=== PATIENT | male | born 1970 | race Caucasian/White ===

== ENCOUNTER → 2018-02-02 08:12 | Outpatient (CLI) | payer OTHER, SELFPAY ==
--- NOTE | 2018-02-02 08:14 | DI.CT.S_ITS ---
PROCEDURE: CT ABDOMEN PELVIS W CON INDICATIONS: 47 year-old male with constipation and rectal pain for 2 weeks. TECHNIQUE: After the administration of oral and intravenous contrast, 5 mm thick sections acquired from the diaphragms to the symphysis. 5 mm thick coronal and sagittal reformats were performed. For radiation dose reduction, the following was used: automated exposure control, adjustment of mA and/or kV according to patient size. COMPARISON: [facility], CT, ABDOMEN/PELVIS WITH CONTRAST, 09/12/2017, 8:55. [facility], CT, ABDOMEN/PELVIS WITH CONTRAST, 05/21/2016, 17:42. FINDINGS: Image quality: Excellent. ABDOMEN: Lung bases: Lung bases are clear, except for minimal right basilar linear scarring. Heart size is normal. Solid organs: Liver is normal in size, with scattered variably sized hepatic cysts as before. Gallbladder wall thickness is normal. Biliary system is non-dilated. Pancreas enhances normally. Spleen is normal in size and enhancement. No adrenal nodules. Kidneys are normal in size and enhancement, without hydronephrosis. Peritoneum and bowel: Stomach, small bowel are normal in caliber and wall thickness. As before, there is a very large amount of stool distending the distal colon and rectum. The appendix appears normal. No free fluid or air. Nodes and vessels: No retroperitoneal or mesenteric adenopathy. Aorta and inferior vena cava are normal in caliber. Miscellaneous: No ventral hernias. PELVIS: Genitourinary: Bladder is incompletely distended at the time of scan, and displaced to the right by stool-distended distal colon. Miscellaneous: No inguinal hernias or adenopathy. Bones: No suspicious bony lesions. No vertebral body compression fractures. Coronal images again demonstrate an asymmetrically shallow right acetabulum, consistent with congenital hip dysplasia. There is thoracolumbar spine disc degeneration. IMPRESSION: 1. Persistent or recurrent findings of severe fecal impaction and constipation, with a very large amount of stool distending the distal colon and rectum. No small bowel obstruction. 2. Background congenital right hip dysplasia as before. 3. Scattered hepatic cysts again noted. Dictated by: Robby Amado M.D. on 02/02/2018 at 10:41 Approved by: Robby Amado M.D. on 02/02/2018 at 10:53
== END ==
PROVIDERS: Family Provider Internal Medicine; PCP Internal Medicine; Visit Provider Internal Medicine Hematology & Oncology
DX: D61.818 Other pancytopenia (principal)
CPT/HCPCS: 74177; Q9967

== ENCOUNTER → 2018-04-06 08:21 | Outpatient (CLI) | payer OTHER, SELFPAY ==
[2018-04-06 08:42] LABS: Hematocrit 29.4 % (41-53); Hemoglobin 10.4 g/dL (13.5-17.5); Mean Corpuscular HGB Conc 35.3 % (30-36); Mean Corpuscular Hemoglobin 39.2 PG (26-34); Platelet Count 43 X10^3/uL (150-400); Red Blood Cell Count 2.64 X10^6/uL (4.5-5.9); Red Cell Distribution Width 19.5 % (11.6-14.8)
[2018-04-06 08:44] LABS: White Blood Cell Count 1.7 X10^3/uL (4.5-11.0)
[2018-04-06 08:45] LABS: Add Manual Diff / Slide Review YES
[2018-04-06 09:05] LABS: Anisocytosis 2+; Neutrophils Absolute Manual 765 /uL (3000-5900); Tear Drop Cells 1+; Total Cells Counted 100
== END ==
PROVIDERS: PCP Internal Medicine; Visit Provider Nurse Practitioner Gerontology
DX: D61.818 Other pancytopenia (principal)
CPT/HCPCS: 36415; 85025

== ENCOUNTER 2018-10-09 14:33 | Emergency (ER) | payer OTHER, SELFPAY ==
[2018-10-09 14:37] VITALS: BP 119/83; PULSE 109; RESP 20; TEMP 37.5; O2SAT 97
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
== END 2018-10-09 17:04 | disposition home or self-care (01) ==
PROVIDERS: Emergency Provider Emergency Medicine; Family Provider Internal Medicine; PCP Internal Medicine
DX: S93.402A Sprain of unspecified ligament of left ankle, initial encounter (principal); S70.02XA Contusion of left hip, initial encounter; W01.0XXA Fall on same level from slipping, tripping and stumbling without subsequent striking against object, initial encounter
CPT/HCPCS: 73610; 99282; 99283

== ENCOUNTER 2019-03-08 15:53 | Emergency (ER) | payer OTHER, SELFPAY ==
[2019-03-08] VITALS (15 sets, daily range): BP systolic 89–117; BP diastolic 52–76; PULSE 71–121; RESP 11–18; TEMP 36.8; O2SAT 92–99; BMI 28.4
[2019-03-08] MEDS: ONDANSETRON 4 MG/2 ML INJ IV (16:08)
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
[2019-03-08 16:36] LABS: Hematocrit 31.2 % (41-53); Hemoglobin 10.7 g/dL (13.5-17.5); INR 1.2 (0.9-1.3); Mean Corpuscular HGB Conc 34.3 % (30-36); Mean Corpuscular Hemoglobin 36.6 PG (26-34); Mean Corpuscular Volume 106.5 fL (80-100); Platelet Count 49 X10^3/uL (150-400); Prothrombin Time 14.3 SECONDS (10.1-12.7); Red Blood Cell Count 2.93 X10^6/uL (4.5-5.9); Red Cell Distribution Width 20.1 % (11.6-14.8); White Blood Cell Count 2.2 X10^3/uL (4.5-11.0)
[2019-03-08 16:41] LABS: Alanine Aminotransferase 126 IU/L (21-72); Albumin 3.5 g/dL (3.5-5.0); Albumin Globulin Ratio 1.8 (1.0-2.8); Alkaline Phosphatase 62 U/L (38-126); Aspartate Aminotransferase 98 IU/L (17-59); Bilirubin Total 1.5 mg/dL (0.2-1.3); Blood Urea Nitrogen 14 mg/dL (9-20); Calcium 8.1 mg/dL (8.4-10.2); Carbon Dioxide 28 mmol/L (22-32); Chloride 103 mmol/L (98-107); Estimated Glomerular Filt Rate > 60.0 mL/min (>60); Globulin 1.9 g/dL (1.7-4.1); Glucose 156 mg/dL (70-100); HEMOLYSIS < 15 (0-50); Potassium 3.4 mmol/L (3.4-5.1); Sodium 138 mmol/L (137-145); Total Protein 5.4 g/dL (6.3-8.2)
[2019-03-08 16:45] LABS: Add Manual Diff / Slide Review YES
[2019-03-08 17:43] LABS: Neutrophils Absolute Manual 638 /uL (3000-5900); Total Cells Counted 100
[2019-03-08 17:45] LABS: Anisocytosis 3+; Macrocytosis 2+; Poikilocytosis 2+
[2019-03-08 17:54] LABS: Creatine Kinase 873 U/L (55-170)
[2019-03-08 18:07] LABS: Troponin I < 0.012 ng/mL (0.01-0.034)
[2019-03-08] MEDS: SODIUM CHLORIDE 0.9% 1,000 ML 1000 ML IV ×2 (19:27→21:16)
== END 2019-03-08 22:17 | disposition short-term general hospital (02) ==
PROVIDERS: Emergency Provider Emergency Medicine; Family Provider Internal Medicine; PCP Internal Medicine
DX: S22.20XA Unspecified fracture of sternum, initial encounter for closed fracture (principal); R58 Hemorrhage, not elsewhere classified; M79.642 Pain in left hand; D61.818 Other pancytopenia; D70.4 Cyclic neutropenia; V43.52XA Car driver injured in collision with other type car in traffic accident, initial encounter
CPT/HCPCS: 29125; 36415; 71260; 72125; 73130; 74177; 80053; 82550; 82553; 84484; 85025; 85610; 93005; 96361; 96374; 99285; J2405; Q9967

== ENCOUNTER 2019-05-15 08:57 | Day surgery (SDC) | payer OTHER, SELFPAY ==
[2019-05-15 09:49] VITALS: BP 109/74; PULSE 111; RESP 16; TEMP 36.3; O2SAT 96; BMI 24.9
[2019-05-15] MEDS: PROPARACAINE 0.5% OPHTH SOL 2 DROPS EYE-OP (10:00)
[2019-05-15] MEDS: CATARACT EYE COMPOUND (10 DROPS/SYRINGE) 3 DROPS EYE-OP (10:02)
[2019-05-15 11:00] VITALS: BP 93/62; PULSE 95; RESP 12; TEMP 36.1; O2SAT 94
[2019-05-15] MEDS: SODIUM CHLORIDE 0.9% 1,000 ML 84 ML IV (11:00)
--- NOTE | 2019-05-15 11:16 | PM.PREOP ---
Pre-operative Note Interval Note History & Physical reviewed/Exam performed by Physician: No Changes to H&P: No
--- NOTE | 2019-05-15 11:16 | PM.OP.1 ---
Operative Date/Time/Diagnoses Pre-op diagnosis: Nuclear cataract right eye Procedure & Clinicians Procedure: Cataract Surgery Same procedure as scheduled: Yes Surgeon: Nico Rowe Anesthesia Type: MAC +/- and Sedation Operative Notes Procedure in detail: Patient brought to the operating suite. Tetracaine drops placed in the right eye. Patient was prepped and draped in sterile manner. Wire lid speculum was placed in the eye. Betadine drops were placed on the eye. This was irrigated. Lidocaine jelly was placed on the eye. A paracentesis port was created with a side-port blade. 0.1 mL 1% preservative free lidocaine was injected into the anterior chamber. The anterior chamber was deepened with viscoelastic. 2.6 mm keratome was used to create a temporal clear corneal incision. Cystotome and Utrata forceps were used to create continuous tear capsulorrhexis. Balanced salt solution was used to hydro dissect the nucleus. The [place] was used to crack the nucleous. The phacoemulsification handpiece was inserted and the nucleus was removed using the stop and chop technique. The irrigation aspiration handpiece was inserted and the remaining cortex was removed. Anterior chamber was deepened with viscoelastic. An Solano ZCB00 intraocular lens with a power of 11.0 was injected into the capsular bag. Irrigation aspiration handpiece was inserted and the remaining viscoelastic was removed. Incision was hydrated with balanced salt solution and found to be leak free with pressure with Weck-Pricilla sponges. 0.1 mL Vigamox injected anterior chamber. 0.3 mL Kenalog 10 mg was injected subconjunctivally. Lid speculum was removed. The patient left the operating room in excellent condition. Complications: none Post-operative Condition: stable Disposition: same day surgery
[2019-05-15 11:30] VITALS: BP 104/67; PULSE 99; RESP 16; TEMP 36.7; O2SAT 95
[2019-05-15] MEDS: TETRACAINE 0.5% OPHTH DROPS 4 ML 2 DROPS EYE-OP (11:45)
[2019-05-15] MEDS: PHENYLEPHRINE/LIDOCAINE VIAL (OR) 0.2 ML EYE-OP (11:45)
[2019-05-15] MEDS: LIDOCAINE JELLY 2% 5 ML 1 APPLIC TOP (11:45)
[2019-05-15] MEDS: MOXIFLOXACIN INJ 5 MG/ML VIAL EYE-OP (11:45)
[2019-05-15] MEDS: CHONDROIDTIN/SOD HYALURONATE 1.05 ML SYRINGE INTRAOCULA (11:45)
[2019-05-15] MEDS: TRIAMCINOLONE 50 MG/5 ML VIAL INJ (11:46)
[2019-05-15] MEDS: BALANCED SALT IRRIG SOLN NO.2 500 ML, EPINEPHrine 1 MG IRR (11:46)
[2019-05-15 11:55] VITALS: BP 111/70; PULSE 109; RESP 14; TEMP 36.8; O2SAT 98
[2019-05-15 12:09] VITALS: BP 105/65; PULSE 112; RESP 14; TEMP 37.1; O2SAT 100
--- NOTE | 2019-05-15 12:13 | SUR.PHASEII ---
Denies feeling light headed, pain, states that he just feels like he'd like to go home and sleep. Has a small amount of red teary drainage from right eye, has not increased since return from OR. Tolerating coffee well. Denies having any questions. Facial color pink.
--- NOTE | 2019-05-15 16:26 | SUR.PREOP ---
Late entry: 1100 pt used call light because he said he felt dizzy, pt was pale and diaphoretic. Pt placed on stretcher and IV flds started, CBG 112, cool cloth placed to forehead. symptoms cleared after several minutes and color returned to face and pt no longer dizzy. Dr vazquez aware of pt's condition.
== END 2019-05-15 12:20 | disposition home or self-care (01) ==
LOC: OR 08:58
PROVIDERS: Family Provider Internal Medicine; PCP Internal Medicine; Visit Provider Ophthalmology
PROC: (CPT 66984; principal; 2019-05-15 10:45)
DX: H25.11 Age-related nuclear cataract, right eye (principal)
CPT/HCPCS: 66984; J0171; J2250; J3301

== ENCOUNTER 2019-05-29 11:03 | Day surgery (SDC) | payer OTHER, SELFPAY ==
[2019-05-29] MEDS: PROPARACAINE 0.5% OPHTH SOL 2 DROPS EYE-OP (11:53)
[2019-05-29] MEDS: CATARACT EYE COMPOUND (10 DROPS/SYRINGE) 3 DROPS EYE-OP (11:56)
[2019-05-29 11:57] VITALS: BMI 25.0
[2019-05-29 11:59] VITALS: BP 113/74; PULSE 82; RESP 16; TEMP 37.1; O2SAT 99
--- NOTE | 2019-05-29 12:09 | PM.PREOP ---
Pre-operative Note Interval Note History & Physical reviewed/Exam performed by Physician: No Changes to H&P: No
--- NOTE | 2019-05-29 12:09 | PM.OP.1 ---
Operative Date/Time/Diagnoses Pre-op diagnosis: Nuclear Cataract Left eye Post-op diagnosis: same Procedure & Clinicians Surgeon: Nico Rowe Anesthesia Type: MAC +/- and Sedation Operative Notes Procedure in detail: Patient brought to the operating suite. Tetracaine drops placed in the left eye. Patient was prepped and draped in sterile manner. Wire lid speculum was placed in the eye. Betadine drops were placed on the eye. This was irrigated. Lidocaine jelly was placed on the eye. A paracentesis port was created with a side-port blade. 0.1 mL 1% preservative free lidocaine was injected into the anterior chamber. The anterior chamber was deepened with viscoelastic. 2.6 mm keratome was used to create a temporal clear corneal incision. Cystotome and Utrata forceps were used to create continuous tear capsulorrhexis. Balanced salt solution was used to hydro dissect the nucleus. The phacoemulsification handpiece was inserted and the nucleus was removed using the stop and chop technique. The irrigation aspiration handpiece was inserted and the remaining cortex was removed. Anterior chamber was deepened with viscoelastic. An Solano ZCB00 intraocular lens with a power of 12.0 was injected into the capsular bag. Irrigation aspiration handpiece was inserted and the remaining viscoelastic was removed. Incision was hydrated with balanced salt solution and found to be leak free with pressure with Weck-Pricilla sponges. 0.1 mL Vigamox injected anterior chamber. 0.3 mL Kenalog 10 mg was injected subconjunctivally. Lid speculum was removed. The patient left the operating room in excellent condition. Complications: none Post-operative Condition: stable Disposition: same day surgery
--- NOTE | 2019-05-29 12:27 | SUR.OPER ---
Supine on eye stretcher, head on extension cradle secured with tape. Arms tucked at sides with blanket. Pillow under knees.
[2019-05-29] MEDS: CHONDROIDTIN/SOD HYALURONATE 1.05 ML SYRINGE INTRAOCULA (12:31)
[2019-05-29] MEDS: PHENYLEPHRINE/LIDOCAINE VIAL (OR) 0.2 ML EYE-OP (12:31)
[2019-05-29] MEDS: MOXIFLOXACIN INJ 5 MG/ML VIAL EYE-OP (12:31)
[2019-05-29] MEDS: LIDOCAINE JELLY 2% 5 ML 1 APPLIC TOP (12:31)
[2019-05-29] MEDS: TETRACAINE 0.5% OPHTH DROPS 4 ML 2 DROPS EYE-OP (12:31)
[2019-05-29 12:37] VITALS: BP 112/72; PULSE 731; RESP 16; TEMP 36.6; O2SAT 98
[2019-05-29] MEDS: TRIAMCINOLONE 50 MG/5 ML VIAL INJ (12:41)
[2019-05-29] MEDS: BALANCED SALT IRRIG SOLN NO.2 500 ML, EPINEPHrine 1 MG IRR (12:42)
[2019-05-29 13:37] VITALS: BP 136/80; PULSE 67; RESP 16; TEMP 36.1; O2SAT 98
== END 2019-05-29 14:03 ==
LOC: OR 11:04
PROVIDERS: Family Provider Internal Medicine; PCP Internal Medicine; Visit Provider Ophthalmology
PROC: (CPT 66984; principal; 2019-05-29 13:15)
DX: H25.12 Age-related nuclear cataract, left eye (principal); D64.9 Anemia, unspecified
CPT/HCPCS: 66984; J0171; J2250; J3010; J3301

== ENCOUNTER → 2019-06-11 12:47 | Outpatient (CLI) | payer OTHER, SELFPAY ==
[2019-06-11 13:00] LABS: Hematocrit 38.1 % (41-53); Hemoglobin 13.2 g/dL (13.5-17.5); Mean Corpuscular HGB Conc 34.7 % (30-36); Mean Corpuscular Hemoglobin 36.3 PG (26-34); Mean Corpuscular Volume 104.5 fL (80-100); Platelet Count 52 X10^3/uL (150-400); Red Blood Cell Count 3.64 X10^6/uL (4.5-5.9); Red Cell Distribution Width 16.6 % (11.6-14.8)
[2019-06-11 13:02] LABS: Add Manual Diff / Slide Review YES; White Blood Cell Count 1.9 X10^3/uL (4.5-11.0)
[2019-06-11 13:45] LABS: Anisocytosis 2+; Neutrophils Absolute Manual 722 /uL (3000-5900); Poikilocytosis 1+; Tear Drop Cells 1+; Total Cells Counted 100
== END ==
PROVIDERS: PCP Internal Medicine
DX: D61.818 Other pancytopenia (principal)
CPT/HCPCS: 36415; 85025

== ENCOUNTER → 2019-07-09 13:20 | Outpatient (CLI) | payer OTHER, SELFPAY ==
[2019-07-09 13:42] LABS: Hematocrit 35.7 % (41-53); Hemoglobin 12.5 g/dL (13.5-17.5); Mean Corpuscular HGB Conc 35.1 % (30-36); Mean Corpuscular Hemoglobin 36.3 PG (26-34); Mean Corpuscular Volume 103.2 fL (80-100); Platelet Count 48 X10^3/uL (150-400); Red Blood Cell Count 3.46 X10^6/uL (4.5-5.9); Red Cell Distribution Width 17.1 % (11.6-14.8)
[2019-07-09 13:44] LABS: Add Manual Diff / Slide Review YES
[2019-07-09 13:45] LABS: White Blood Cell Count 1.7 X10^3/uL (4.5-11.0)
[2019-07-09 14:22] LABS: Neutrophils Absolute Manual 408 /uL (3000-5900); Total Cells Counted 25
[2019-07-09 14:24] LABS: Anisocytosis 2+; Macrocytosis 2+; Microcytosis 1+; Poikilocytosis 2+
== END ==
PROVIDERS: PCP Internal Medicine
DX: D61.818 Other pancytopenia (principal)
CPT/HCPCS: 36415; 85025

== ENCOUNTER → 2019-07-23 13:20 | Outpatient (CLI) | payer OTHER, SELFPAY ==
[2019-07-23 13:46] LABS: Hematocrit 38.1 % (41-53); Hemoglobin 13.4 g/dL (13.5-17.5); Mean Corpuscular HGB Conc 35.2 % (30-36); Mean Corpuscular Hemoglobin 36.5 PG (26-34); Mean Corpuscular Volume 103.7 fL (80-100); Platelet Count 46 X10^3/uL (150-400); Red Blood Cell Count 3.67 X10^6/uL (4.5-5.9)
[2019-07-23 13:48] LABS: Add Manual Diff / Slide Review YES
[2019-07-23 13:50] LABS: White Blood Cell Count 1.9 X10^3/uL (4.5-11.0)
[2019-07-23 14:22] LABS: Macrocytosis 1+; Neutrophils Absolute Manual 551 /uL (3000-5900); Platelet Estimate Decreased on smear; Total Cells Counted 100
[2019-07-23 14:23] LABS: Tear Drop Cells 1+
[2019-07-23 15:14] LABS: Smudge Cells 1+
== END ==
PROVIDERS: PCP Internal Medicine
DX: D61.818 Other pancytopenia (principal)
CPT/HCPCS: 36415; 85025

== ENCOUNTER → 2019-08-13 13:28 | Outpatient (CLI) | payer OTHER, SELFPAY ==
[2019-08-13 14:46] LABS: Add Manual Diff / Slide Review NO; Basophils Absolute Auto 0 /uL (0-100); Basophils Percent Auto 0.3 % (0-2); Eosinophils Absolute Auto 0 /uL (0-450); Eosinophils Percent Auto 0.3 % (2-4); Hematocrit 39.2 % (41-53); Hemoglobin 13.7 g/dL (13.5-17.5); Lymphocytes Absolute Auto 1100 /uL (1100-4500); Lymphocytes Percent Auto 46.2 % (25-40); Mean Corpuscular HGB Conc 34.9 % (30-36); Mean Corpuscular Hemoglobin 36.1 PG (26-34); Mean Corpuscular Volume 103.5 fL (80-100); Monocytes Absolute Auto 100 /uL (0-900); Monocytes Percent Auto 5.4 % (3-14); Neutrophils Absolute Auto 1100 /uL (1500-7000); Neutrophils Percent Auto 47.8 % (50-75); Platelet Count 54 X10^3/uL (150-400); Red Blood Cell Count 3.79 X10^6/uL (4.5-5.9); Red Cell Distribution Width 17.7 % (11.6-14.8); White Blood Cell Count 2.4 X10^3/uL (4.5-11.0)
== END ==
PROVIDERS: PCP Internal Medicine
DX: D61.818 Other pancytopenia (principal)
CPT/HCPCS: 36415; 85025

== ENCOUNTER → 2019-09-10 13:28 | Outpatient (CLI) | payer OTHER, SELFPAY ==
[2019-09-10 15:11] LABS: Hemoglobin 13.9 g/dL (13.5-17.5); Mean Corpuscular HGB Conc 34.9 % (30-36); Mean Corpuscular Hemoglobin 35.6 PG (26-34); Platelet Count 46 X10^3/uL (150-400); Red Blood Cell Count 3.92 X10^6/uL (4.5-5.9); Red Cell Distribution Width 16.5 % (11.6-14.8)
[2019-09-10 15:14] LABS: Add Manual Diff / Slide Review YES
[2019-09-10 15:40] LABS: Neutrophils Absolute Manual 820 /uL (3000-5900); Total Cells Counted 100
[2019-09-10 15:41] LABS: Macrocytosis 1+
== END ==
PROVIDERS: PCP Internal Medicine
DX: D61.818 Other pancytopenia (principal)
CPT/HCPCS: 36415; 85025

== ENCOUNTER 2019-09-17 14:29 | Inpatient (IN) | payer OTHER, SELFPAY ==
[2019-09-17] VITALS (8 sets, daily range): BP systolic 106–143; BP diastolic 56–84; PULSE 101–134; RESP 17–25; TEMP 37.8–38.9; O2SAT 94–99; BMI 25.8
--- NOTE | 2019-09-17 14:45 | ED_ITS ---
HPI - Fever General Chief Complaint: Fever Stated Complaint: IV FLUIDS Time Seen by Provider: 09/17/19 14:33 Source: patient and old records reviewed Mode of arrival: Ambulatory Limitations: no limitations History of Present Illness HPI Narrative: This is a 48-year-old male comes emergency complaint of fevers. Patient has had multiple fevers up to 103 F orally at home documented. 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 He takes prednisone daily as well as Neupogen injections at least once weekly. He states that he has been having chills and fevers. He has had some dysuria, sense of hesitancy with some dribbling but at other times able to urinate but does not feel like he is completely emptying his bladder. He denies any new abdominal or flank pain. He has chronic constipation he states it's been about a week which is normal for him he denies any chest pain or shortness of breath. He denies any cough. Denies any nasal congestion, upper respiratory symptoms. He states he has had pilonidal cysts that have been treated as well as colonoscopy for disimpaction or constipation in the past. He denies other surgeries. Related Data Home Medications Medication Instructions Recorded Confirmed polyethylene glycol 3350 [Miralax] 17 gm PO DAILY #0 07/16/16 09/17/19 Neupogen 480 mcg IJ QWEEK #0 09/23/17 09/17/19 Vitamin B-12 500 mcg PO DAILY #0 09/23/17 09/17/19 pyridoxine (vitamin B6) [Vitamin 250 mg PO DAILY 01/26/18 09/17/19 B-6] pediatric multivitamin 1 tab PO DAILY 09/17/19 09/17/19 [Flintstones Multivitamin] prednisone 20 mg PO SUMOTUWEFR 09/17/19 09/17/19 Previous Rx's Medication Instructions Recorded lactulose 20 g PO TID PRN #240 ml 04/24/18 Allergies Allergy/AdvReac Type Severity Reaction Status Date / Time No Known Drug Allergies Allergy Verified 05/29/19 11:52 Review of Systems Review of Systems ROS Unobtainable: All systems reviewed & are unremarkable except as noted in HPI and below Patient History Medical History Bone marrow failure (Acute) Constipation (Acute) Fecal impaction (Acute) Pancytopenia (Acute) Schwachman-Snehal syndrome (Acute) Social History household members: none Smoking Status: Never smoker Smoking Status: Never smoker alcohol intake frequency: a few times a week Substance Use Type: does not use Exam Narrative Exam Narrative: GEN: well nourished, well appearing male, alert and oriented x 3, patient appears to be in mild distress. HEENT: Atraumatic, pupils are equal round reactive to light, extraocular movements are intact, nares are clear, moist mucous membranes. HEART: Regular rate and rhythm without murmur, clicks, rubs. Pulses are equal in upper and lower extremities LUNGS:Lungs clear to auscultation, no wheezes, rales, crackles, chest moves symmetrically, no tachypnea or accessory muscle use. No cough while in the room. ABD:bowel sounds normal, soft, nondistended, non-tender, no guarding, rebound, rigidity, no masses noted, no hepatosplenomegaly :No CVA tenderness. MSCL: Non-tender, no muscle atrophy, muscles strength 5/5 upper and lower extremities, full range of motion, normal gait NEURO:CN 2-12 intact, sensation normal SKIN: pale, no rashes, petechiae or ecchymosis noted. Initial Vital Signs Initial Vital Signs: Vital Signs Temperature 102.1 F H 09/17/19 14:35 Pulse Rate 134 H 09/17/19 14:35 Respiratory Rate 18 09/17/19 14:35 Blood Pressure 139/84 09/17/19 14:35 Pulse Oximetry 98 09/17/19 14:35 Scores qSOFA Altered Mental Status (GCS <15): No Respiratory rate greater than/equal to 22: No Systolic blood pressure less than or equal to 100: No qSOFA Total: 0 0-1 Not High Risk 1-3 High risk Course Orders Ordered: ED Orders 09/17/19 14:54 XR acute abdomen series Stat 09/17/19 15:20 Comprehensive Metabolic Panel Stat Creatine Kinase Stat Lactate (Lactic Acid) Stat Procalcitonin Stat 01/20/20 15:31 Blood Culture Stat 09/17/19 17:33 CT abdomen pelvis w con Stat Discontinued Medications Acetaminophen (Tylenol) 650 mg PO NOW ONE Stop: 09/17/19 14:56 Last Admin: 09/17/19 15:22 Dose: 650 mg Documented by: DAVID Sodium Chloride (Normal Saline 0.9%) 2,112 mls @ 704 mls/hr 30 ml/kg infuse over 3 hr (2112 ml) IV NOW ONE Stop: 09/17/19 17:44 Last Admin: 09/17/19 15:08 Dose: 704 mls/hr Documented by: ACE Piperacillin/Tazobactam/Dextrose (Zosyn) 4.5 gm in 100 mls @ 200 mls/hr IV NOW ONE Stop: 09/17/19 15:14 Last Infusion: 09/17/19 15:50 Dose: 0 mls/hr Documented by: Admin: 09/17/19 15:17 Dose: 200 mls/hr Documented by: DAVID Vital Signs Vital signs: Vital Signs - 8 hr 09/17/19 14:35 09/17/19 15:50 09/17/19 16:00 Temperature 102.1 F H Pulse Rate 134 H 113 H 110 H Respiratory Rate 18 25 H 18 Blood Pressure 139/84 Blood Pressure [Right Arm] 106/56 L 119/63 Pulse Oximetry 98 97 99 09/17/19 17:10 Temperature 100.8 F H Pulse Rate 108 H Respiratory Rate 17 Blood Pressure Blood Pressure [Right Arm] 112/61 Pulse Oximetry 99 MDM - Fever Lab Data Attestation: I reviewed the patient's lab results. Result diagrams: 09/17/19 15:20 Labs: Lab Results 09/17/19 09/17/19 09/17/19 Range/Units 15:20 15:20 15:20 Sodium 135 L (137-145) mmol/L Potassium 3.9 (3.4-5.1) mmol/L Chloride 103 (98-107) mmol/L Carbon Dioxide 28 (22-32) mmol/L BUN 17 (9-20) mg/dL Creatinine 0.50 L (0.66-1.25) mg/dL Estimated GFR > 60.0 (>60) mL/min BUN/Creatinine Ratio 34.0 H (6-22) Glucose 98 (70-100) mg/dL Lactate 1.5 (0.7-2.1) mmol/L Calcium 8.3 L (8.4-10.2) mg/dL Total Bilirubin 1.5 H (0.2-1.3) mg/dL AST 64 H (17-59) IU/L ALT 75 H (<50) IU/L Alkaline Phosphatase 67 (38-126) U/L Total Creatine Kinase (55-170) U/L Total Protein 6.0 L (6.3-8.2) g/dL Albumin 3.5 (3.5-5.0) g/dL Globulin 2.5 (1.7-4.1) g/dL Albumin/Globulin Ratio 1.4 (1.0-2.8) Procalcitonin 0.44 (<0.5) ng/mL 09/17/19 Range/Units 15:20 Sodium (137-145) mmol/L Potassium (3.4-5.1) mmol/L Chloride (98-107) mmol/L Carbon Dioxide (22-32) mmol/L BUN (9-20) mg/dL Creatinine (0.66-1.25) mg/dL Estimated GFR (>60) mL/min BUN/Creatinine Ratio (6-22) Glucose (70-100) mg/dL Lactate (0.7-2.1) mmol/L Calcium (8.4-10.2) mg/dL Total Bilirubin (0.2-1.3) mg/dL AST (17-59) IU/L ALT (<50) IU/L Alkaline Phosphatase (38-126) U/L Total Creatine Kinase 411 H (55-170) U/L Total Protein (6.3-8.2) g/dL Albumin (3.5-5.0) g/dL Globulin (1.7-4.1) g/dL Albumin/Globulin Ratio (1.0-2.8) Procalcitonin (<0.5) ng/mL Imaging Data Abdominal x-ray: Radiologist's Impression: [address] [address] XRay Report Signed Patient: Kermit Raza III WMR#: [id number] : 1970Acct:[id number] Age/Sex: 48 / MDate of Service: 09/17/19 Loc: ED Accession Number: [id number] Procedure: XR acute abdomen series Ordering Provider: Silvia Andrade D.O. PROCEDURE: XR ACUTE ABDOMEN SERIES INDICATIONS: neutropenic fever TECHNIQUE: One view chest and two views of the abdomen were acquired. COMPARISON: [facility], CR, ABDOMEN ACUTE SERIES, 10/27/2016, 10:10. FINDINGS: Surgical changes and devices: None. Chest: Lungs are clear. Heart size is normal. No pleural effusions. No pneumoperitoneum. Abdomen: Bowel gas pattern is abnormal with prominent sigmoid and rectal obstipation. Stool within the rectum area measures up to 10.7 cm in transverse dimension.. No suspicious calcifications. Visualized solid organ contours appear normal. Bones: No suspicious bony lesions. IMPRESSION: Prominent colonic obstipation as discussed above, stool measuring up to 10.7 cm in diameter appears present superimposed on the midline low pelvis. The a similar pattern but slightly less prominent than was seen on similar plain film imaging of . Dictated by: Germain Rene M.D. on 09/17/2019 at 16:14 Approved by: Germain Rene M.D. on 09/17/2019 at 16:16 CT scan - abdomen/pelvis: Radiologist's Impression: [place] [id number] CT Scan Report Signed Patient: Kermit Raza III WMR#: [id number] : 1970Acct:[id number] Age/Sex: 48 / MDate of Service: 09/17/19 Loc: NI46O-2 Accession Number: [id number] Procedure: CT abdomen pelvis w con Ordering Provider: Silvia Andrade D.O. PROCEDURE: CT ABDOMEN PELVIS W CON INDICATIONS: constipation, uti, pyelo vs. other TECHNIQUE: After the administration of intravenous contrast, 5 mm thick sections acquired from the diaphragm to the symphysis. 5 mm coronal and sagittal reformats were acquired. For radiation dose reduction, the following was used: automated exposure control, adjustment of mA and/or kV according to patient size. COMPARISON: [facility], CT, CT CHEST ABD PEL W CON, 03/08/2019, 16:29. [facility], CT, CT ABDOMEN PELVIS W CON, 02/02/2018, 9:38. [facility], CT, ABDOMEN/PELVIS WITH CONTRAST, 09/12/2017, 8:55. FINDINGS: Image quality: Excellent. ABDOMEN: Lung bases: Mild bibasilar atelectasis greater on the left. Heart size is normal. Solid organs: Liver is normal in size and enhancement. Numerous hepatic hypodensities are again noted and likely representing cyst versus hemangiomas. Gallbladder is unremarkable. Biliary system is non dilated. Redemonstration of moderate fatty replacement of the pancreas. Pancreas enhances normally. Mild splenomegaly is again noted. Normal enhancement of the spleen. No adrenal nodules. Kidneys demonstrate normal size and enhancement, without hydronephrosis. There is minimal, subtle ureteral enhancement which may be related to phase of contrast versus minimal inflammation. Peritoneum and bowel: There is severe amount of fecal material noted in the mid sigmoid colon extending to the rectum. Surrounding bowel wall appears normal without significant inflammatory stranding. This displaces the urinary bladder to the right. Bowel loops demonstrate normal wall thickness and caliber. No free fluid or air. Nodes and vessels: No retroperitoneal or mesenteric adenopathy by size criteria. Aorta and inferior vena cava are normal in size. Miscellaneous: No ventral hernias. PELVIS: Genitourinary: Urinary bladder is decompressed. Minimal wall thickening likely related to incomplete distention. No perivesicular inflammatory stranding. Miscellaneous: No pelvic adenopathy. Small fat containing bilateral inguinal hernias without acute inflammation. Bones: No suspicious bony lesions. No acute vertebral body compression fractu res. Multilevel spondylitic changes throughout the imaged spine. IMPRESSION: 1. Extensive/severe amount of fecal material noted in the mid sigmoid colon extending to the rectum compatible with constipation/impaction. No evidence for acute inflammatory changes or bowel obstruction. 2. Subtle enhancement of the bilateral ureters which may be related to phase of contrast enhancement versus minimal inflammation in the reported history of possible urinary tract infection. Additionally, mild circumferential thickening of the urinary bladder which may be due to incomplete distention. Cystitis cannot be excluded given reported history. Recommend correlation with urinalysis. 3. Fat-containing bilaterally normal hernias without acute inflammation. 4. Other chronic findings as above. Dictated by: Sha Venegas M.D. on 09/17/2019 at 18:15 Approved by: Sha Venegas M.D. on 09/17/2019 at 18:26 [facility] Narrative Medical decision making narrative: Spoke with Dr. Cates, he saw patient earlier today. They did a CBC and UA which was sent and shows blood as well as wbcs and bacteria. Lab was unable to run secondary discoloration. Patient states he is not taking azo or any medications that should be causing his symptoms. May be hematuria. CPK was added. Patient has a manual neutrophils of 264, hgb is 12.8 with platelets of 39. Sodium is 135 with otherwise normal electrolytes and normal renal function. Patient's total bilirubin is 1.5, with AST is 64 and ALT of 75. Alk-phos is 67. Patient's procalcitonin was 0.44. Patient had a temperature of 102.1? F in ER. Patient given tylenol. IV fluids for sepsis at 30cc/kg bolus. Zosyn 4.5grams given. Spoke with Dr. Sheppard, requests CT abd/pelvis but accepts for inpatient with tele. CT results show extensive stool mid sigmoid colon, no evidence of inflammation or bowel obstruction. subtle enhancement of bilateral ureters, cystitis cannot be excluded. fat-containing b/l normal hernias without acute inflammation. Discharge Plan Departure Patient Disposition: Admitted As Inpatient Clinical Impression: Neutropenic fever Admit Date/Time: 09/17/19 17:41 Admit Provider: Eleanor Sheppard
--- NOTE | 2019-09-17 14:54 | DI.RAD.S_ITS ---
PROCEDURE: XR ACUTE ABDOMEN SERIES INDICATIONS: neutropenic fever TECHNIQUE: One view chest and two views of the abdomen were acquired. COMPARISON: [facility], , ABDOMEN ACUTE SERIES, 10/27/2016, 10:10. FINDINGS: Surgical changes and devices: None. Chest: Lungs are clear. Heart size is normal. No pleural effusions. No pneumoperitoneum. Abdomen: Bowel gas pattern is abnormal with prominent sigmoid and rectal obstipation. Stool within the rectum area measures up to 10.7 cm in transverse dimension.. No suspicious calcifications. Visualized solid organ contours appear normal. Bones: No suspicious bony lesions. IMPRESSION: Prominent colonic obstipation as discussed above, stool measuring up to 10.7 cm in diameter appears present superimposed on the midline low pelvis. The a similar pattern but slightly less prominent than was seen on similar plain film imaging of . Dictated by: Germain Rene M.D. on 09/17/2019 at 16:14 Approved by: Germain Rene M.D. on 09/17/2019 at 16:16
[2019-09-17] MEDS: SODIUM CHLORIDE 0.9% 704 ML IV (15:08)
[2019-09-17] MEDS: PIPERACILLIN-TAZO 4.5 GM/100 ML FROZ.PIGGY IV (15:17)
[2019-09-17] MEDS: ACETAMINOPHEN 325 MG TABLET 650 MG PO (15:22)
[2019-09-17 15:50] LABS: Lactate (Lactic Acid) 1.5 mmol/L (0.7-2.1)
[2019-09-17 15:51] LABS: Alanine Aminotransferase 75 IU/L (<50); Albumin 3.5 g/dL (3.5-5.0); Albumin Globulin Ratio 1.4 (1.0-2.8); Alkaline Phosphatase 67 U/L (38-126); Aspartate Aminotransferase 64 IU/L (17-59); Bilirubin Total 1.5 mg/dL (0.2-1.3); Blood Urea Nitrogen 17 mg/dL (9-20); Calcium 8.3 mg/dL (8.4-10.2); Carbon Dioxide 28 mmol/L (22-32); Chloride 103 mmol/L (98-107); Estimated Glomerular Filt Rate > 60.0 mL/min (>60); Globulin 2.5 g/dL (1.7-4.1); Glucose 98 mg/dL (70-100); HEMOLYSIS < 15 (0-50); Potassium 3.9 mmol/L (3.4-5.1); Sodium 135 mmol/L (137-145)
[2019-09-17 16:13] LABS: Procalcitonin 0.44 ng/mL (<0.5)
[2019-09-17 17:22] LABS: Creatine Kinase 411 U/L (55-170)
--- NOTE | 2019-09-17 17:33 | DI.CT.S_ITS ---
PROCEDURE: CT ABDOMEN PELVIS W CON INDICATIONS: constipation, uti, pyelo vs. other TECHNIQUE: After the administration of intravenous contrast, 5 mm thick sections acquired from the diaphragm to the symphysis. 5 mm coronal and sagittal reformats were acquired. For radiation dose reduction, the following was used: automated exposure control, adjustment of mA and/or kV according to patient size. COMPARISON: [facility], CT, CT CHEST ABD PEL W CON, 03/08/2019, 16:29. [facility], CT, CT ABDOMEN PELVIS W CON, 02/02/2018, 9:38. [facility], CT, ABDOMEN/PELVIS WITH CONTRAST, 09/12/2017, 8:55. FINDINGS: Image quality: Excellent. ABDOMEN: Lung bases: Mild bibasilar atelectasis greater on the left. Heart size is normal. Solid organs: Liver is normal in size and enhancement. Numerous hepatic hypodensities are again noted and likely representing cyst versus hemangiomas. Gallbladder is unremarkable. Biliary system is non dilated. Redemonstration of moderate fatty replacement of the pancreas. Pancreas enhances normally. Mild splenomegaly is again noted. Normal enhancement of the spleen. No adrenal nodules. Kidneys demonstrate normal size and enhancement, without hydronephrosis. There is minimal, subtle ureteral enhancement which may be related to phase of contrast versus minimal inflammation. Peritoneum and bowel: There is severe amount of fecal material noted in the mid sigmoid colon extending to the rectum. Surrounding bowel wall appears normal without significant inflammatory stranding. This displaces the urinary bladder to the right. Bowel loops demonstrate normal wall thickness and caliber. No free fluid or air. Nodes and vessels: No retroperitoneal or mesenteric adenopathy by size criteria. Aorta and inferior vena cava are normal in size. Miscellaneous: No ventral hernias. PELVIS: Genitourinary: Urinary bladder is decompressed. Minimal wall thickening likely related to incomplete distention. No perivesicular inflammatory stranding. Miscellaneous: No pelvic adenopathy. Small fat containing bilateral inguinal hernias without acute inflammation. Bones: No suspicious bony lesions. No acute vertebral body compression fractures. Multilevel spondylitic changes throughout the imaged spine. IMPRESSION: 1. Extensive/severe amount of fecal material noted in the mid sigmoid colon extending to the rectum compatible with constipation/impaction. No evidence for acute inflammatory changes or bowel obstruction. 2. Subtle enhancement of the bilateral ureters which may be related to phase of contrast enhancement versus minimal inflammation in the reported history of possible urinary tract infection. Additionally, mild circumferential thickening of the urinary bladder which may be due to incomplete distention. Cystitis cannot be excluded given reported history. Recommend correlation with urinalysis. 3. Fat-containing bilaterally normal hernias without acute inflammation. 4. Other chronic findings as above. Dictated by: Sha Venegas M.D. on 09/17/2019 at 18:15 Approved by: Sha Venegas M.D. on 09/17/2019 at 18:26
--- NOTE | 2019-09-17 20:54 | P.HP_ITS ---
History of Present Illness History of Present Illness Date Patient Seen: 09/17/19 Time Patient Seen: 19:30 Chief complaint: infusion Narrative: Kermit Raza is 48 y.o. male with Schwachman-Snehal syndrome a genetic blood dyscrasia and associated pancytopenia and is followed by oncology. He developed a fever of 102 today with chills and with a complaint of urinary retention and a burning sensation on urination. He was seen by Dr. Cates and received a Neupogen injection today. He does endorse a sore and scratchy throat, has chronic bloating associated with constipation, and easy bruising which is not new for him. He denies headache, cough, shortness of breath, chest pain, nausea or vomiting, abdominal pain, numbing or tingling, or body aches. Patient History Medical History (Updated 09/17/19 @ 20:55 by POLO Ornelas) Bone marrow failure (Acute) Constipation (Acute) Fecal impaction (Acute) Pancytopenia (Acute) Pilonidal cyst (Acute) Schwachman-Snehal syndrome (Acute) Surgical History (Updated 09/17/19 @ 21:11 by POLO Ornelas) S/P bilateral cataract extraction (Acute) Family & Social History Family History (Updated 09/17/19 @ 20:55 by POLO Ornelas) Mother Diabetes mellitus Social History: household members none Prior Living Arrangements House Safety & Behavioral: Feels Safe in Current Yes Environment Been Physically Hurt or No Threatened By a Person Suicidal Ideation Description None Suicide Plan Description No Plan Tobacco & Substance use: Smoking Status Never smoker alcohol intake frequency a few times a week Substance Use Type does not use Meds Home Medications and Allergies Home Medications Medication Instructions Recorded Confirmed Type polyethylene glycol 3350 [Miralax] 17 gm PO DAILY #0 07/16/16 09/17/19 History Neupogen 480 mcg IJ QWEEK #0 09/23/17 09/17/19 History Vitamin B-12 500 mcg PO DAILY #0 09/23/17 09/17/19 History pyridoxine (vitamin B6) [Vitamin 250 mg PO DAILY 01/26/18 09/17/19 History B-6] lactulose 20 g PO TID PRN #240 ml 04/24/18 09/17/19 Rx pediatric multivitamin 1 tab PO DAILY 09/17/19 09/17/19 History [Flintstones Multivitamin] prednisone 20 mg PO SUMOTUWEFR 09/17/19 09/17/19 History Allergies Allergy/AdvReac Type Severity Reaction Status Date / Time No Known Drug Allergies Allergy Verified 05/29/19 11:52 Review of Systems Review of Systems Narrative: All systems reviewed and are negative except as noted in the HPI. Exam Vital Signs (past 8 hours): - 09/17/19 14:35 09/17/19 15:50 09/17/19 16:00 Temperature 102.1 F H Pulse Rate 134 H 113 H 110 H Respiratory Rate 18 25 H 18 Blood Pressure 139/84 Blood Pressure [Right Arm] 106/56 L 119/63 Pulse Oximetry 98 97 99 09/17/19 17:10 09/17/19 18:09 09/17/19 18:16 Temperature 100.8 F H Pulse Rate 108 H 101 H 101 H Respiratory Rate 17 20 Blood Pressure Blood Pressure [Right Arm] 112/61 116/62 Pulse Oximetry 99 94 94 Oxygen Delivery Method Room Air Narrative Exam Narrative: Gen: Alert, oriented, well-developed 48 y.o. male, appears pale HEENT: normocephalic, atraumatic, conjunctiva clear, sclera non-icteric, oral mucosa pink and moist Neck: supple, full ROM Resp: Lungs CTA, non-labored breathing CV: RRR, no murmur or rubs Abd: soft, non-tender, normoactive BTs Skin: diffusely thinning hair, no lesions or rashes, dry and intact Neuro: Alert and oriented X 4 w/no focal deficits Extremities: moves all 4 extremities, is ambulatory, negative Aissatou?s sign Psyche: normal mood and affect. Objective Labs Result Diagrams: 09/17/19 15:20 Labs: Laboratory Results - last 24 hr 09/17/19 09/17/19 09/17/19 15:20 15:20 15:20 Sodium 135 L Potassium 3.9 Chloride 103 Carbon Dioxide 28 BUN 17 Creatinine 0.50 L Estimated GFR > 60.0 BUN/Creatinine Ratio 34.0 H Glucose 98 Lactate 1.5 Calcium 8.3 L Total Bilirubin 1.5 H AST 64 H ALT 75 H Alkaline Phosphatase 67 Total Creatine Kinase Total Protein 6.0 L Albumin 3.5 Globulin 2.5 Albumin/Globulin Ratio 1.4 Procalcitonin 0.44 09/17/19 15:20 Sodium Potassium Chloride Carbon Dioxide BUN Creatinine Estimated GFR BUN/Creatinine Ratio Glucose Lactate Calcium Total Bilirubin AST ALT Alkaline Phosphatase Total Creatine Kinase 411 H Total Protein Albumin Globulin Albumin/Globulin Ratio Procalcitonin Assessment & Plan Assessment & Plan narrative: Kermit Raza III will be admitted as an inpatient for neutropenic fever and a suspected UTI. 1. Neutropenic fever secondary to Schwachman-snehal Syndrome, acute, present on admission * Patient recently received Neupogen injection * Symptomatic relief of fever w/ibuprofen q 6 hours * To discuss w/Dr. Cates * IV 0.45 NS at 100 ml/hour 2. Suspected UTI, acute * Patient's stated urinary retention is presumed to be obstructive. * U/A was incomplete due to opacity of the sample, I have ordered a new culture * Consider starting IV Ceftriaxone 2 gram daily. Will be ordered if u/a indicates infecton * He received one dose of IV Piptaz 4.5 mg in the ED. 3. Chronic constipation secondary to pancreatic insufficiency, chronic, present on admission * He will receive his home dose of miralax 17 grams po daily * I have increased his lactulose to 30 grams po TID FEN: 0.45 NS at 100 ml/hour X 1 liter, general diet, CMP in the am Patient is admitted inpatient his stay is likely to exceed 2 midnights. VTE Prophylaxis: bilateral SCDs, pharmacological prophylaxis contraindicated due to low platelet counts Medications reconciled: yes Disposition: likely discharge to home Code Status: Full Code Quality VTE Deep Vein Thrombosis/Pulmonary Embolism Present on Admission: No
[2019-09-17] MEDS: SODIUM CHLORIDE 0.9% 1,000 ML 100 ML IV (21:10)
[2019-09-17] MEDS: LACTULOSE 20 GM/30 ML SOLUTION 30 GM PO (21:18)
--- NOTE | 2019-09-17 22:53 | PC.NURSE ---
Evening Shift Note: Pt admitted to ICU from ER for fever, neutropenia, and likely UTI. Pt is alert and oriented, denies pain, denies nausea. Pt is incontinent of urine, difficulty obtaining clean catch, pt finally able to void enough for clean catch just after incontinent episode. Pt with bladder scan prior to void showing no volume in bladder. Pt with abdominal CT that showed large volume of stool in colon and rectum, smears of stools noted with incontinent urine episodes. Pt reports that this is normal for him, r/t underlying genetic syndrome. Pt given home lactulose dose this pm. Pt otherwise complaining of feeling chilled, temperature is 100.2 by temporal measurement. Call light in reach, pt is using it appropriately to call for assistance. Will continue to monitor, notify MD with changes.
[2019-09-18] VITALS (9 sets, daily range): BP systolic 90–136; BP diastolic 59–76; PULSE 73–118; RESP 16; TEMP 36.2–39.3; O2SAT 93–98
[2019-09-18] MEDS: IBUPROFEN 600 MG TABLET PO (02:53)
[2019-09-18 05:05] LABS: Alanine Aminotransferase 76 IU/L (<50); Albumin 2.5 g/dL (3.5-5.0); Albumin Globulin Ratio 1.1 (1.0-2.8); Alkaline Phosphatase 64 U/L (38-126); Aspartate Aminotransferase 77 IU/L (17-59); Bilirubin Total 1.3 mg/dL (0.2-1.3); Blood Urea Nitrogen 11 mg/dL (9-20); Calcium 7.2 mg/dL (8.4-10.2); Carbon Dioxide 21 mmol/L (22-32); Chloride 106 mmol/L (98-107); Creatine Kinase 296 U/L (55-170); Estimated Glomerular Filt Rate > 60.0 mL/min (>60); Globulin 2.3 g/dL (1.7-4.1); Glucose 156 mg/dL (70-100); HEMOLYSIS < 15 (0-50); Potassium 2.9 mmol/L (3.4-5.1); Sodium 133 mmol/L (137-145); Total Protein 4.8 g/dL (6.3-8.2)
[2019-09-18 05:07] LABS: Hematocrit 28.4 % (41-53); Hemoglobin 10.2 g/dL (13.5-17.5); Mean Corpuscular HGB Conc 35.8 % (30-36); Mean Corpuscular Hemoglobin 35.8 PG (26-34); Mean Corpuscular Volume 99.9 fL (80-100); Red Blood Cell Count 2.84 X10^6/uL (4.5-5.9); Red Cell Distribution Width 16.4 % (11.6-14.8)
[2019-09-18 05:16] LABS: White Blood Cell Count 1.5 X10^3/uL (4.5-11.0)
[2019-09-18 05:18] LABS: Add Manual Diff / Slide Review YES; Platelet Count 29 X10^3/uL (150-400)
[2019-09-18] MEDS: POTASSIUM CHLORIDE 20 MEQ TAB 40 MEQ PO (05:46)
[2019-09-18 06:56] LABS: Neutrophils Absolute Manual 1035 /uL (3000-5900); Total Cells Counted 100
[2019-09-18 06:58] LABS: Anisocytosis 1+; Dohle Bodies 2+; Platelet Estimate Decreased on smear; Toxic Granulation Present; Toxic Vacuolation Present
[2019-09-18] MEDS: predniSONE 5 MG TABLET 20 MG PO (10:38)
--- NOTE | 2019-09-18 11:02 | PC.NURSE ---
Am shift Pt is A/o x3, forgetful at times. Refusing Mars overnight, but able to use urinal. Offgoing NOC shift reports <10mls on bladder scan post void at end of NOC shift. , Pt requesting to sleep through breakfast. Assessed and meal taken @ 1000. Pt took Pred, requesting Miralax/lactulose later this AM. Education given about constipation and need for routine bowel meds. Pt has flat affect, but agrees to take meds later. Tele in place HR 110, hypotensive. Enc PO fluids. Enc offloading pressure as Pt has fragile skin from chronic pred use. Report to Hector SHAIKH for move to 202.
--- NOTE | 2019-09-18 11:17 | PC.NURSE ---
Day shift: Pt on AC unit now. Was ICU. Report received by this copywriter. Pt oriented to room and call light. Pt Agrees to not get OOB w/o help from staff. Stated he wants to sleep now. VS WNL. RA 98%.
--- NOTE | 2019-09-18 11:24 | PC.NURSE ---
Day shift: Per LOCOMOTIVE SUPERVISOR Pt didn't want to take 2 of his morning meds. Will give when Pt wants them. For now they will be non-given.
--- NOTE | 2019-09-18 11:42 | CM.DANOTE ---
pt. being cared for by hospitalist due to diagnosis of UTI that will require infusiion and monitoring due to patient's neutrapenic status. Found pt. watching TV, rather flat affect but appropriately interactive and A&O x 4 Denies any discharge needs and could not identify any discharge barriers. Reports feeling just fine was rather surprised he was in the hospital. Received an email earlier today from Nazanin Grant, the outpatient pediatric social worker. The email states< Good morning! Just wanted to let you all know that we are aware of Jhoan Raza , we sent him there yesterday to begin IV antibiotics. He is very complicated, psychosocially, and I?ve been working with him for a few years now. I?ve given him [facility] forms to help with his concerns re: costs relating to this inpt admission, and he is very savvy about getting other resources that he knows he needs, has discussed his concerns with me several times, yet never really follows through. He?ll be in and out of the hospital for the rest of his life with his condition. Let me know if I can help with anything, thanks! Marjan : )
[2019-09-18] MEDS: POLYETHYLENE GLYCOL 3350 17 GM POWD.PACK PO (13:32)
[2019-09-18] MEDS: LACTULOSE 20 GM/30 ML SOLUTION 30 GM PO (13:32)
--- NOTE | 2019-09-18 16:03 | P.PN_ITS ---
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 The patient is resting in bed comfortably. He reports he feels much better than yesterday. He states that his fevers, chills, and rigors have resolved since he started IV antibiotics. He continues to have mild dysuria but his other genitourinary symptoms have resolved including urinary urgency and sensation of incomplete bladder emptying. He has not yet had a bowel movement. He reports some chronic abdominal discomfort and early satiety from chronic constipation. He has no other complaints and denies headache, shortness of breath, chest pain, nausea, vomiting, fever, chills, or diarrhea. He is voiding without difficulty. He is up ambulating with assistance. Exam Vital Signs (past 8 hours): - 09/18/19 11:00 Temperature 98.1 F Pulse Rate 79 Respiratory Rate 16 Blood Pressure 90/59 L Pulse Oximetry 93 Oxygen Delivery Method Room Air Oxygen Flow Rate 0 Narrative Exam Narrative: General: Middle-aged short statured gentleman lying in bed and in no acute distress, well-developed, well-nourished, appropriately interactive. HEENT: Normocephalic, atraumatic. External ears without defect. Pupils equal, round, and reactive to light. Anicteric sclerae, moist conjunctivae, and no lid lag. Oropharynx free of erythema and cobble stoning with moist mucosa. Neck: Supple with full range of motion. No jugular venous distension. No lymphadenopathy or thyromegaly. Cardiovascular: Regular rate and rhythm without murmurs, rubs, or gallops appreciated. Pulmonary: Clear to auscultation bilaterally without crackles, wheezes, or rhonchi. Normal respiratory effort with no use of accessory muscles. Abdomen: Soft, bowel sounds present, nontender, nondistended. Mild suprapubic tenderness. No hepatosplenomegaly or masses appreciated. Extremities: No clubbing, cyanosis, or edema. Skin: Normal temperature, turgor, and texture; no rash, ulcers, or subcutaneous nodules appreciated. Neurological: Cranial nerves grossly intact. Psychiatric: Normal mood and flat affect. Appears alert and oriented to person, place, and time. Objective Labs Result Diagrams: 09/18/19 04:35 09/18/19 04:35 Labs: Laboratory Results - last 24 hr 09/17/19 09/17/19 09/17/19 15:20 15:20 15:20 WBC RBC Hgb Hct MCV MCH MCHC RDW Plt Count Neut % (Auto) Lymph % (Auto) [place] % (Auto) Eos % (Auto) Baso % (Auto) Lymph # (Auto) [place] # (Auto) Baso # (Auto) Total Counted Seg Neutrophils % Band Neutrophils % Lymphocytes % (Manual) Atypical Lymphs % Monocytes % (Manual) Metamyelocytes % Neutrophils # (Manual) Toxic Granulation Toxic Vacuolation Dohle Bodies Platelet Estimate RBC Morphology Anisocytosis Sodium 135 L Potassium 3.9 Chloride 103 Carbon Dioxide 28 BUN 17 Creatinine 0.50 L Estimated GFR > 60.0 BUN/Creatinine Ratio 34.0 H Glucose 98 Calcium 8.3 L Total Bilirubin 1.5 H AST 64 H ALT 75 H Alkaline Phosphatase 67 Total Creatine Kinase 411 H Total Protein 6.0 L Albumin 3.5 Globulin 2.5 Albumin/Globulin Ratio 1.4 Procalcitonin 0.44 Nasal Screen MRSA (PCR) 09/17/19 09/18/19 09/18/19 20:00 04:35 04:35 WBC 1.5 L* D RBC 2.84 L Hgb 10.2 L Hct 28.4 L MCV 99.9 MCH 35.8 H MCHC 35.8 RDW 16.4 H Plt Count 29 L* Neut % (Auto) Not Reportable Lymph % (Auto) Not Reportable [place] % (Auto) Not Reportable Eos % (Auto) Not Reportable Baso % (Auto) Not Reportable Lymph # (Auto) Not Reportable [place] # (Auto) Not Reportable Baso # (Auto) Not Reportable Total Counted 100 Seg Neutrophils % 24.0 L Band Neutrophils % 45.0 H Lymphocytes % (Manual) 25.0 Atypical Lymphs % 2.0 H Monocytes % (Manual) 3.0 Metamyelocytes % 1.0 H Neutrophils # (Manual) 1035 L Toxic Granulation Present H Toxic Vacuolation Present H Dohle Bodies 2+ H Platelet Estimate Decreased on smear RBC Morphology See below Anisocytosis 1+ H Sodium 133 L Potassium 2.9 L Chloride 106 Carbon Dioxide 21 L BUN 11 Creatinine 0.50 L Estimated GFR > 60.0 BUN/Creatinine Ratio 22.0 Glucose 156 H Calcium 7.2 L Total Bilirubin 1.3 AST 77 H ALT 76 H Alkaline Phosphatase 64 Total Creatine Kinase 296 H Total Protein 4.8 L Albumin 2.5 L Globulin 2.3 Albumin/Globulin Ratio 1.1 Procalcitonin Nasal Screen MRSA (PCR) Negative for mrsa Assessment & Plan Assessment & Plan narrative: Kermit Raza III is a 48-year-old male with past medical history significant for 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 1. Neutropenic fever secondary to acute UTI, present on admission. Active. -Patient presented to Hematology-Oncology appointment and was found to be severely neutropenic with fever and sent to ED. Patient endorses sensation of incomplete bladder emptying, urinary hesitancy, urinary frequency and dysuria. -Urinalysis appears grossly infected with urine culture preliminarily growing gram-negative bacilli with sensitivities pending. -Blood culture x2 has no growth to date. -Received Zosyn 4.5 mg IV x1 in ED. Continue Zosyn 4.5 mg every 6 hours for broad-spectrum antibiotic coverage including Pseudomonas. 2. Acute on chronic constipation with fecal impaction, present on admission. Active. -CT abdomen and pelvis with contrast demonstrated fecal impaction. -Continue bowel regimen with: Lactulose 30 g 3 times daily titrated to effect, MiraLax 17 g daily and Colace 100 mg twice daily. -Plan to discuss with Hematology/Oncology necessity to treat pancreatic insufficiency with pancreatic enzyme replacement as patient reports he has done in the past which will aid and chronic constipation and potentially prevent future fecal impaction and UTI. 3. Schwachman-Snehal Syndrome, chronic, present on admission. Stable. 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 -Initial WBC 0.6 with ANC 264. WBC trending up now 1.5 with ANC 1000. Initial hemoglobin 12.8 at baseline and now trending downward likely due to IV fluid administration and infection. Initial platelet count 39 with baseline platelet count 40-60 and trending downward now 29 due to infection. Continue to monitor CBC closely. Transfusion goal Plt < 20 and Hgb < 8.0. -Received Neupogen injection at hematology/oncology appointment yesterday [address] Cates. Code Status: Full Code VTE prophylaxis: SCDs Disposition: Patient likely to discharge home in 1-2 days pending urine culture identification and sensitivities and overall clinical improvement with treatment for UTI. Quality VTE Deep Vein Thrombosis/Pulmonary Embolism Present on Admission: No
[2019-09-18] MEDS: PIPERACILLIN-TAZO 4.5 GM/100 ML FROZ.PIGGY IV ×2 (16:12→21:15)
[2019-09-18] MEDS: SODIUM CHLORIDE 0.9% 1,000 ML 1000 ML IV (16:12)
[2019-09-18] MEDS: SODIUM CHLORIDE 0.9% 1,000 ML 100 ML IV (17:40)
--- NOTE | 2019-09-18 22:31 | PC.NURSE ---
Evening Shift Note Patient refusing to take lactulose this evening. Patient expressed that he would like to wait until he has a bowel movement since he feels it coming on. Patient educated on rationale for medication administration due to fecal impaction. No change. This RN also offered a suppository earlier in shift and patient refused. Patient with moderate incontinent bowel movement and void this evening. Will continue to monitor.
[2019-09-19] MEDS: PIPERACILLIN-TAZO 4.5 GM/100 ML FROZ.PIGGY IV ×2 (03:44→09:46)
[2019-09-19 03:45] VITALS: BP 112/73; PULSE 79; RESP 16; TEMP 36.9; O2SAT 99
[2019-09-19] MEDS: SODIUM CHLORIDE 0.9% 1,000 ML 100 ML IV (04:37)
[2019-09-19 07:10] LABS: BUN Creatinine Ratio 27.5 (6-22); Blood Urea Nitrogen 11 mg/dL (9-20); Calcium 7.6 mg/dL (8.4-10.2); Carbon Dioxide 25 mmol/L (22-32); Chloride 109 mmol/L (98-107); Estimated Glomerular Filt Rate > 60.0 mL/min (>60); Glucose 97 mg/dL (70-100); HEMOLYSIS 29 (0-50); Potassium 3.8 mmol/L (3.4-5.1); Sodium 137 mmol/L (137-145)
[2019-09-19 08:00] VITALS: BP 136/63; PULSE 83; RESP 18; TEMP 36.9; O2SAT 100
[2019-09-19 08:05] LABS: Hematocrit 28.1 % (41-53); Hemoglobin 10.2 g/dL (13.5-17.5); Mean Corpuscular HGB Conc 36.3 % (30-36); Mean Corpuscular Hemoglobin 35.8 PG (26-34); Mean Corpuscular Volume 98.6 fL (80-100); Red Blood Cell Count 2.85 X10^6/uL (4.5-5.9); Red Cell Distribution Width 16.2 % (11.6-14.8)
[2019-09-19 08:09] LABS: Add Manual Diff / Slide Review YES
[2019-09-19 08:15] LABS: Platelet Count 23 X10^3/uL (150-400); White Blood Cell Count 1.3 X10^3/uL (4.5-11.0)
[2019-09-19 08:39] LABS: Neutrophils Absolute Manual 468 /uL (3000-5900); Total Cells Counted 50
[2019-09-19 08:41] LABS: Anisocytosis 1+
[2019-09-19 08:42] LABS: Platelet Estimate Decr
[2019-09-19 08:44] LABS: Poikilocytosis 1+
[2019-09-19] MEDS: LACTULOSE 20 GM/30 ML SOLUTION 30 GM PO (09:45)
[2019-09-19] MEDS: POLYETHYLENE GLYCOL 3350 17 GM POWD.PACK PO (09:46)
[2019-09-19] MEDS: predniSONE 5 MG TABLET 20 MG PO (09:46)
--- NOTE | 2019-09-19 09:54 | PC.NURSE ---
Addendum entered by Sherley Conde R.N. 09/19/19 13:58: pt changed into personal clothing (and hospital pants), packed up, and transferred to his private vehicle. Wallet, keys, and discharge paperwork provided to patient and placed in car. PIVx2 removed and tolerated well. No questions remain. Addendum entered by Sherley Conde R.N. 09/19/19 11:36: PT went into room to perform an assessment. pt felt nauseous and vomited approximately 20ml total in an emesis bag and on his chest. pt declined anti-nausea medications and stated he felt better. Original Note: AM Shift. pt AO and hesitant on receiving bowel medications and care. pt verbalized decline to take any of his morning bowel meds this AM, but hasn't had a solid BM in days, which pt states is normal for him. Labs drawn this AM and lab called up critical values for PLT of 23 (down from 29) and WBC of 1.3 (down from 1.5). Dr. Sheppard made aware and stated that no blood infusion until PLT less than 20. Dr. Sheppard communicated her concern of no BM and provided a verbal order for a mineral oil enema and a soap marisol enema and relayed that the patient can no longer refuse his BM medications and to have a conversation with him. After a solid conversation, the pt agreed and the student nurse is in the room administering AM medications with her professor. pt is distended and has hyperactive bowel tones and pt reports anal leakage when standing. Right eye has some sclera erythema which he states has been there for a while, but pt is unable to communicate time frame.
--- NOTE | 2019-09-19 10:39 | PT-IP ANOTE ---
Pt vomiting at this time. Holding eval at this time. Pt reports no difficulty with walking at baseline. He is independent without an assistive device at baseline. Will check back this afternoon.
[2019-09-19] MEDS: MINERAL OIL 1 EACH ENEMA PR (11:39)
[2019-09-19 12:00] VITALS: BP 122/86; PULSE 90; RESP 17; TEMP 37.2; O2SAT 96
--- NOTE | 2019-09-19 12:22 | PM.DS.1 ---
History of Present Illness History of Present Illness Date Patient Seen: 09/17/19 Chief complaint: infusion Narrative: Written by Polly CUELLAR: Kermit Raza is 48 y.o. male with Schwachman-Snehal syndrome a genetic blood dyscrasia and associated pancytopenia and is followed by oncology. He developed a fever of 102 today with chills and with a complaint of urinary retention and a burning sensation on urination. He was seen by Dr. Cates and received a Neupogen injection today. He does endorse a sore and scratchy throat, has chronic bloating associated with constipation, and easy bruising which is not new for him. He denies headache, cough, shortness of breath, chest pain, nausea or vomiting, abdominal pain, numbing or tingling, or body aches. Discharge Providers Provider Date of admission: 09/17/19 17:41 Discharge Date: 09/19/19 Primary care physician: Mela Auguste MD Consults: 09/18/19 16:02 Consult to Physical Therapy Evaluate & Treat Comment: Physician Instructions: Evaluate and Treat Discharge provider: Eleanor Sheppard DO Summary Hospital Course Discharge Diagnosis: 1. Neutropenic fever secondary to acute UTI, present on admission. Resolving. 2. Acute on chronic constipation with fecal impaction, present on admission. Acute fecal impaction resolved. 3. Schwachman-Snehal Syndrome, chronic, present on admission. Stable. 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 1. Neutropenic fever secondary to acute UTI, present on admission. Resolving. -Patient presented to Hematology-Oncology appointment and was found to be severely neutropenic with fever and sent to ED. Patient endorses sensation of incomplete bladder emptying, urinary hesitancy, urinary frequency and dysuria. -Urinalysis appears grossly infected with urine culture grew pansensitive E coli. -Blood culture x2 has no growth to date. -Received Zosyn 4.5 mg IV x1 in ED. Continued Zosyn 4.5 mg every 6 hours for broad-spectrum antibiotic coverage including Pseudomonas pending urine culture results as above. Discharged on ciprofloxacin 500 mg twice daily for 5 additional days to complete a total 7 day course of antibiotics, as well as, probiotic twice daily to help promote healthy GI tre and potentially help prevent infectious diarrhea such as C difficile. 2. Acute on chronic constipation with fecal impaction, present on admission. Acute fecal impaction resolved. -CT abdomen and pelvis with contrast demonstrated fecal impaction. -Continued IV fluids until adequately hydrated then discontinued. -Received 1 dose of lactulose (previously refused) and 1 mineral oil enema in addition to daily MiraLax with successful large formed BM. Continued bowel regimen with: MiraLax 17 g increased from once to twice daily, added Colace 100 mg twice daily, lactulose 30 g 3 times daily titrated to effect and at least 1 bowel movement per day, and bisacodyl suppository or enema as needed for persistent constipation. -Patient's beamer operator/oncologist, Dr. Cates, will consider pancreatic enzyme replacement for chronic pancreatic insufficiency to plate worker helper in digestion and chronic constipation. -Patient will need screening colonoscopy for colon cancer if has not already been completed. 3. Schwachman-Snehal Syndrome, chronic, present on admission. Stable. 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 -Initial WBC 0.6 with ANC 264. WBC trending up now 1.5 with ANC 1000. Initial hemoglobin 12.8 at baseline and now trending downward likely due to IV fluid administration and infection. Initial platelet count 39 with baseline platelet count 40-60 and trending downward now 23 due to infection and hemodilution from IVF. Continued to monitor CBC closely. Transfusion goal Plt < 20 and Hgb < 8.0. -Received Neupogen injection at hematology/oncology appointment yesterday 09/17/[address] Cates. -Patient will follow-up at Dr. Davalos is a office tomorrow morning 09/20/2019 to have CBC performed and possible platelet transfusion if platelet level is less than 20. Exam Vital Signs (past 8 hours): - 09/19/19 08:00 Temperature 98.4 F Pulse Rate 83 Respiratory Rate 18 Blood Pressure 136/63 Pulse Oximetry 100 Oxygen Delivery Method Room Air Oxygen Flow Rate 0 Narrative Exam Narrative: General: Middle-aged short statured gentleman lying in bed and in no acute distress, well-developed, well-nourished, appropriately interactive. HEENT: Normocephalic, atraumatic. External ears without defect. Pupils equal, round, and reactive to light. Anicteric sclerae, moist conjunctivae, and no lid lag. Oropharynx free of erythema and cobble stoning with moist mucosa. Neck: Supple with full range of motion. No jugular venous distension. No lymphadenopathy or thyromegaly. Cardiovascular: Regular rate and rhythm without murmurs, rubs, or gallops appreciated. Pulmonary: Clear to auscultation bilaterally without crackles, wheezes, or rhonchi. Normal respiratory effort with no use of accessory muscles. Abdomen: Soft, bowel sounds present, nontender, nondistended. Suprapubic tenderness resolved. No hepatosplenomegaly or masses appreciated. Extremities: No clubbing, cyanosis, or edema. Skin: Normal temperature, turgor, and texture; no rash, ulcers, or subcutaneous nodules appreciated. Neurological: Cranial nerves grossly intact. Psychiatric: Normal mood and flat affect. Appears alert and oriented to person, place, and time. Objective Labs Result Diagrams: 09/19/19 07:25 09/19/19 06:50 Labs: Laboratory Results - last 24 hr 09/19/19 09/19/19 09/19/19 06:50 06:50 07:25 WBC 1.3 L* RBC 2.85 L Hgb 10.2 L Hct 28.1 L MCV 98.6 MCH 35.8 H MCHC 36.3 H RDW 16.2 H Plt Count 23 L* Neut % (Auto) Not Reportable Lymph % (Auto) Not Reportable [place] % (Auto) Not Reportable Eos % (Auto) Not Reportable Baso % (Auto) Not Reportable Lymph # (Auto) Not Reportable [place] # (Auto) Not Reportable Baso # (Auto) Not Reportable Total Counted 50 Seg Neutrophils % 28.0 L Band Neutrophils % 8.0 H Lymphocytes % (Manual) 56.0 H Atypical Lymphs % 2.0 H Monocytes % (Manual) 4.0 Myelocytes % 2.0 H Neutrophils # (Manual) 468 L Platelet Estimate Decr RBC Morphology See below Poikilocytosis 1+ H Anisocytosis 1+ H Sodium 137 Potassium 3.8 Chloride 109 H Carbon Dioxide 25 BUN 11 Creatinine 0.40 L Estimated GFR > 60.0 BUN/Creatinine Ratio 27.5 H Glucose 97 Calcium 7.6 L Magnesium 2.0 Discharge Plan Discharge Plan Patient Disposition: Home Discharge comment: You are being discharged home. You had an E coli UTI and fecal impaction. You have been prescribed ciprofloxacin 500 mg twice daily for 5 additional days to complete a 7 day course of antibiotics. Please take a probiotic twice daily to help promote healthy gut tre and prevent infectious diarrhea. Please go to your beamer operator/oncologist, Dr. Cates's office tomorrow morning to have your blood counts checked and possible platelet transfusion. Highly recommend increased implementation of a bowel regimen including MiraLax 1-2 times daily, Colace 100 mg twice daily, lactulose 1-3 times daily as needed to have 1 bowel movement per day, bisacodyl suppository and/or enema as needed for persistent consitpation. Dr. Cates is considering implementing pancreatic enzyme replacement. Discharge orders & Medications Prescriptions: New Bacid 1 billion cell- 250 mg Tablet 1 tab PO BIDWM Qty: 1 RF: 0 bisacodyl 10 mg Suppository 10 mg [place] DAILY PRN (Reason: Constipation) Qty: 10 RF: 0 ciprofloxacin HCl 500 mg tablet 500 mg PO BID Qty: 7 RF: 0 docusate sodium [DOK] 100 mg Capsule 100 mg PO BID Qty: 60 RF: 0 Continued Neupogen 480 MCG/0.8 ML syringe 480 mcg IJ QWEEK Qty: 0 RF: 0 Vitamin B-12 50 mcg Tablet 500 mcg PO DAILY Qty: 0 RF: 0 prednisone 5 mg tablet 20 mg PO SUMOTUWEFR RF: 0 pediatric multivitamin [Flintstones Multivitamin] Tablet,Chewable 1 tab PO DAILY RF: 0 pyridoxine (vitamin B6) [Vitamin B-6] 250 mg Tablet 250 mg PO DAILY RF: 0 lactulose 10 gram/15 mL Solution 20 g PO TID PRN (Reason: severe constipation) Qty: 240 RF: 3 Changed polyethylene glycol 3350 [Miralax] 17 GM powder in packet 17 gm PO QD-BID Qty: 0 RF: 0 Other Ambulatory Orders: Complete Blood Count AUTO DIFF (Stat) Timeframe: 1 Day Facility: [facility] - Location: Laboratory Ordered By: Eleanor Sheppard Follow up/Referrals: Mela Auguste MD [Primary Care Provider] - 1 Week Sheyla Cates MD [Physician] - 09/20/19 8:00 am (Please go to Dr. Cates's clinic for CBC check and possible platelet transfusion if needed. ) Diet/Activity/Treatments Diet: Diet as Tolerated Activity: Activity as tolerated Visit Report/Discharge Packet Instructions: DI for Urinary Tract Infection (UTI), DI for Constipation Discharge Data Primary Care Provider: Mela Auguste Discharges patient from system. Discharge Date/Time: 09/19/19 14:00 Quality VTE Deep Vein Thrombosis/Pulmonary Embolism Present on Admission: No
--- NOTE | 2019-09-19 12:24 | PC.NURSE ---
BOWEL MOVEMENT. pt had a large, loose, incontinent BM. When asked if he is normally incontinent, pt replied that his rectal sphincter muscle doesn't work and he wears briefs at home. We cleaned pt up and transferred him to the BSC. pt needed to void and needs to stand to use urinal (unable to reach into BSC). pt also had incontinent void on floor. Dr. Sheppard came into room and discussed discharge home on PO ABX, probiotic, and to f/u with Dr. Davalos (hematology). pt agreed and no questions remained.
== END 2019-09-19 14:00 | disposition home or self-care (01) | DRG 690 ==
LOC: ED 17:42 → AC 17:42 → ICU 19:34 → AC 09-18 11:11
PROVIDERS: Nurse Practitioner Family; Nurse Practitioner Gerontology; Admitting Provider Internal Medicine; Emergency Provider Emergency Medicine; PCP Internal Medicine; Visit Provider Internal Medicine
DX: N39.0 Urinary tract infection, site not specified (principal); M35.8 Other specified systemic involvement of connective tissue; D70.4 Cyclic neutropenia; K86.89 Other specified diseases of pancreas; K59.09 Other constipation; R33.9 Retention of urine, unspecified; R50.81 Fever presenting with conditions classified elsewhere; B96.20 Unspecified Escherichia coli [E. coli] as the cause of diseases classified elsewhere
CPT/HCPCS: 36415; 51798; 74022; 74177; 80048; 80053; 81001; 82550; 83605; 83735; 84145; 85025; 87040; 87077; 87086; 87186; 87797; 96361; 96365; 96372; 99284; 99285; J2543; Q5110; Q9967

== ENCOUNTER → 2019-09-20 09:52 | Outpatient (CLI) | payer OTHER, SELFPAY ==
[2019-09-17 19:35] VITALS: BMI 25.8
[2019-09-20 10:23] LABS: Hematocrit 32.2 % (41-53); Hemoglobin 11.5 g/dL (13.5-17.5); Mean Corpuscular HGB Conc 35.8 % (30-36); Mean Corpuscular Hemoglobin 35.3 PG (26-34); Mean Corpuscular Volume 98.5 fL (80-100); Red Blood Cell Count 3.27 X10^6/uL (4.5-5.9)
[2019-09-20 10:24] LABS: Add Manual Diff / Slide Review YES; Platelet Count 29 X10^3/uL (150-400); White Blood Cell Count 1.5 X10^3/uL (4.5-11.0)
[2019-09-20 10:57] LABS: Anisocytosis 1+; Neutrophils Absolute Manual 465 /uL (3000-5900); Total Cells Counted 100
== END ==
PROVIDERS: Internal Medicine; PCP Internal Medicine
DX: D61.818 Other pancytopenia (principal)
CPT/HCPCS: 36415; 85025

== ENCOUNTER → 2019-10-08 14:22 | Outpatient (CLI) | payer OTHER, SELFPAY ==
[2019-09-17 19:35] VITALS: BMI 25.8
[2019-10-08 14:41] LABS: Add Manual Diff / Slide Review NO; Basophils Absolute Auto 0 /uL (0-100); Basophils Percent Auto 1.2 % (0-2); Eosinophils Absolute Auto 0 /uL (0-450); Eosinophils Percent Auto 0.3 % (2-4); Hematocrit 34.8 % (41-53); Lymphocytes Absolute Auto 800 /uL (1100-4500); Lymphocytes Percent Auto 37.7 % (25-40); Mean Corpuscular HGB Conc 34.5 % (30-36); Mean Corpuscular Hemoglobin 35.3 PG (26-34); Mean Corpuscular Volume 102.5 fL (80-100); Monocytes Absolute Auto 100 /uL (0-900); Monocytes Percent Auto 4.7 % (3-14); Neutrophils Absolute Auto 1200 /uL (1500-7000); Neutrophils Percent Auto 56.1 % (50-75); Platelet Count 48 X10^3/uL (150-400); Red Cell Distribution Width 19.1 % (11.6-14.8); White Blood Cell Count 2.2 X10^3/uL (4.5-11.0)
== END ==
PROVIDERS: PCP Internal Medicine
DX: D61.818 Other pancytopenia (principal)
CPT/HCPCS: 36415; 85025

== ENCOUNTER → 2019-10-29 12:23 | Outpatient (CLI) | payer OTHER, SELFPAY ==
[2019-09-17 19:35] VITALS: BMI 25.8
[2019-10-29 12:41] LABS: Hematocrit 38.3 % (41-53); Hemoglobin 13.5 g/dL (13.5-17.5); Mean Corpuscular HGB Conc 35.1 % (30-36); Mean Corpuscular Hemoglobin 35.5 PG (26-34); Mean Corpuscular Volume 100.9 fL (80-100); Platelet Count 52 X10^3/uL (150-400)
[2019-10-29 12:42] LABS: Add Manual Diff / Slide Review YES; White Blood Cell Count 1.4 X10^3/uL (4.5-11.0)
[2019-10-29 13:04] LABS: Neutrophils Absolute Manual 504 /uL (3000-5900); RBC Morphology Normal Morphology; Total Cells Counted 50
== END ==
PROVIDERS: PCP Internal Medicine
DX: D61.818 Other pancytopenia (principal)
CPT/HCPCS: 36415; 85025

== ENCOUNTER → 2019-11-05 12:41 | Outpatient (CLI) | payer OTHER, SELFPAY ==
[2019-09-17 19:35] VITALS: BMI 25.8
[2019-11-05 13:01] LABS: Hematocrit 38.3 % (41-53); Hemoglobin 13.3 g/dL (13.5-17.5); Mean Corpuscular HGB Conc 34.7 % (30-36); Mean Corpuscular Hemoglobin 35.5 PG (26-34); Mean Corpuscular Volume 102.4 fL (80-100); Platelet Count 50 X10^3/uL (150-400); Red Blood Cell Count 3.75 X10^6/uL (4.5-5.9); Red Cell Distribution Width 18.3 % (11.6-14.8)
[2019-11-05 13:03] LABS: Add Manual Diff / Slide Review YES; White Blood Cell Count 1.8 X10^3/uL (4.5-11.0)
[2019-11-05 13:37] LABS: Monocytes Percent Manual 3.3 % (2-11); Neutrophils Absolute Manual 661 /uL (3000-5900); Segmented Neutrophils Percent 36.7 % (38-70); Total Cells Counted 30
[2019-11-05 13:39] LABS: Anisocytosis 2+; Macrocytosis 2+; Ovalocytes 1+; Platelet Estimate Decreased on smear; Poikilocytosis 1+
== END ==
PROVIDERS: Internal Medicine Hematology & Oncology; PCP Internal Medicine
DX: D61.818 Other pancytopenia (principal)
CPT/HCPCS: 36415; 85025

== ENCOUNTER → 2019-11-06 14:53 | Outpatient (CLI) | payer OTHER, SELFPAY ==
[2019-09-17 19:35] VITALS: BMI 25.8
--- NOTE | 2019-11-06 14:55 | DI.RAD.S_ITS ---
PROCEDURE: XR KUB INDICATIONS: evaluate obstipation/stool in colon TECHNIQUE: One view of the abdomen acquired. COMPARISON: [facility], CR, XR ACUTE ABDOMEN SERIES, 09/17/2019, 15:52. FINDINGS: Surgical changes and devices: None. Bowel: Bowel gas pattern is normal. Soft tissues: No suspicious abdominal calcifications. Visualized solid organ contours appear normal in size. Large amount of stool is present throughout the colon and in the rectal vault suggestive of fecal impaction Bones: No suspicious bony lesions. Bilateral hip degeneration. Lumbar spondylosis. IMPRESSION: Large amount of stool, throughout the colon and also within the rectal vault suggestive of fecal impaction. Dictated by: Lb Davalos M.D. on 11/06/2019 at 15:32 Approved by: Lb Davalos M.D. on 11/06/2019 at 15:33
== END ==
PROVIDERS: PCP Internal Medicine; Referring Provider Specialist; Visit Provider Specialist
DX: K59.00 Constipation, unspecified (principal); D70.4 Cyclic neutropenia; M16.0 Bilateral primary osteoarthritis of hip; M47.816 Spondylosis without myelopathy or radiculopathy, lumbar region
CPT/HCPCS: 74018

== ENCOUNTER → 2020-11-10 12:51 | Outpatient (CLI) | payer OTHER, MEDICAID, SELFPAY ==
[2019-09-17 19:35] VITALS: BMI 25.8
--- NOTE | 2020-11-10 | DI.RAD.S_ITS ---
PROCEDURE: XR ANKLE RT MIN 3V INDICATIONS: Sprain of unspecified ligament of right ankle, ini TECHNIQUE: 3 views of the ankle were acquired. COMPARISON: [facility], CR, XR ANKLE LT MIN 3V, 10/09/2018, 14:39. FINDINGS: Bones: No fractures or dislocations. Ankle mortise is normally aligned. No suspicious bony lesions. Chronic appearing corticated ossicle projects adjacent to the tip of the lateral malleolus possibly from prior trauma. Soft tissues: Circumferential soft tissue swelling IMPRESSION: Circumferential soft tissue swelling. No fracture. If the patient's symptoms do not improve recommend followup radiographs in 10 days to assess for healing sclerosis/occult injury. Dictated by: Lb Davalos M.D. on 11/10/2020 at 16:15 Approved by: Lb Davalos M.D. on 11/10/2020 at 16:17
== END ==
PROVIDERS: PCP Internal Medicine; Referring Provider Internal Medicine; Visit Provider Internal Medicine
DX: S93.401A Sprain of unspecified ligament of right ankle, initial encounter (principal); M79.89 Other specified soft tissue disorders; R59.1 Generalized enlarged lymph nodes; X58.XXXA Exposure to other specified factors, initial encounter
CPT/HCPCS: 73610

== ENCOUNTER → 2021-04-13 14:30 | Outpatient (CLI) | payer OTHER, MEDICAID, SELFPAY ==
[2019-09-17 19:35] VITALS: BMI 25.8
[2021-04-13 15:08] LABS: Add Manual Diff / Slide Review NO; Basophils Absolute Auto 0 /uL (0-100); Basophils Percent Auto 0.3 % (0-2); Eosinophils Absolute Auto 0 /uL (0-450); Eosinophils Percent Auto 0.3 % (2-4); Hematocrit 43.2 % (41-53); Hemoglobin 14.8 g/dL (13.5-17.5); Lymphocytes Absolute Auto 1500 /uL (1100-4500); Lymphocytes Percent Auto 51.7 % (25-40); Mean Corpuscular HGB Conc 34.3 % (30-36); Mean Corpuscular Hemoglobin 34.6 PG (26-34); Monocytes Absolute Auto 200 /uL (0-900); Monocytes Percent Auto 5.7 % (3-14); Neutrophils Absolute Auto 1200 /uL (1500-7000); Platelet Count 71 X10^3/uL (150-400); Red Blood Cell Count 4.27 X10^6/uL (4.5-5.9); Red Cell Distribution Width 17.1 % (11.6-14.8); White Blood Cell Count 2.8 X10^3/uL (4.5-11.0)
== END ==
PROVIDERS: PCP Internal Medicine; Referring Provider Internal Medicine Hematology & Oncology; Visit Provider Internal Medicine Hematology & Oncology
DX: D61.818 Other pancytopenia (principal)
CPT/HCPCS: 36415; 85025

== ENCOUNTER 2023-11-11 14:44 | Emergency (ER) | payer OTHER, MEDICAID, SELFPAY ==
[2019-09-17 19:35] VITALS: BMI 25.8
[2023-11-11 14:47] VITALS: BP 139/73; PULSE 108; RESP 18; TEMP 36.8; O2SAT 98; BMI 26.6
--- NOTE | 2023-11-11 14:55 | ED.RECABL ---
HPI - Recheck/Abnormal Lab/Rx <Gurjit Klein PA-C - Last Filed: 11/11/23 15:48> General Chief Complaint: Recheck/Abnormal Lab/Rx Stated Complaint: colostomy bag loose, oozing Time Seen by Provider: 11/11/23 14:55 Source: patient Mode of arrival: Ambulatory History of Present Illness HPI narrative: This is a 52-year-old male presents emergency department due to his ostomy bag becoming loose and beginning to follow out of place. Patient recently had an ostomy an ostomy bag placed about 10 days ago. He states that he was not properly shown how to change it. He was an appointment in 3 days with the surgeon's office for evaluation. He was concerned that the area underneath the back looks ?puffy?. Concerns as becoming infected. Related Data Home Medications Medication Instructions Recorded Confirmed cyanocobalamin (vitamin B-12) 50 500 mcg PO DAILY ##0 09/23/17 04/20/23 mcg tablet (Vitamin B-12) filgrastim 480 mcg/0.8 mL 480 mcg IJ QWEEK ##0 09/23/17 04/20/23 injection syringe (Neupogen) pyridoxine (vitamin B6) 250 mg 250 mg PO DAILY 01/26/18 04/20/23 tablet (Vitamin B-6) prednisone 5 mg tablet 20 mg PO SUMOTUWEFR 04/04/23 04/20/23 Previous Rx's Medication Instructions Recorded lactulose 10 gram/15 mL oral 15 ml PO DAILY PRN Constipation 02/15/22 solution #300 mL Allergies Allergy/AdvReac Type Severity Reaction Status Date / Time No Known Drug Allergies Allergy Verified 11/11/23 14:51 Review of Systems <Gurjit Klein PA-C - Last Filed: 11/11/23 15:48> Review of Systems Narrative: GENERAL: Denies chills, fatigue, malaise, fever, sweats. HEENT: Denies sinus pain, ear pain, sore throat, difficulty swallowing, dizziness. RESPIRATORY: Denies dyspnea, cough, wheezing, hemoptysis, sputum. CARDIOVASCULAR: Denies chest pain, palpitations, orthopnea, edema, GASTROINTESTINAL: Denies nausea, vomiting, abdominal pain, diarrhea, constipation, melena. : Denies dysuria, frequency, incontinence, hematuria, urinary retention. MUSCULOSKELETAL: denies weakness, joint pain, or bony pain SKIN: Denies rash, skin lesions, or other NEUROLOGIC: Denies weakness, headache, numbness, change in speech, confusion, seizures, incoordination. PSYCHIATRIC: No concerning psychosocial issues. 12 point review of systems is negative except for those stated above Patient History <Gurjit Klein PA-C - Last Filed: 11/11/23 15:48> Medical History Bone marrow failure Constipation Fecal impaction Pancytopenia Pilonidal cyst Schwachman-Snehal syndrome Surgical History S/P bilateral cataract extraction Family History Mother Diabetes mellitus Social History marital status: unmarried,single household members: none lives independently: Yes occupational status: employed Smoking Status: Never smoker alcohol intake: current substance use type: does not use Smoking Status: Never smoker alcohol intake frequency: a few times a week Substance Use Type: does not use Exam <Gurjit Klein PA-C - Last Filed: 11/11/23 15:48> Narrative Exam Narrative: GENERAL: Well-developed patient, in mild distress. HEAD: Atraumatic. Normocephalic. EYES: Pupils equal round and reactive. Extraocular motions intact. No scleral icterus. No injection or drainage. ENT: Nose without bleeding, purulent drainage. Throat without erythema, tonsillar hypertrophy or exudate. Airway patent. NECK: Trachea midline. Non tender EXTREMITIES: No edema or joint tenderness. NEURO: AOx3. SKIN: Ostomy bag loosely in place. Intestines appear well perfused and pink. Initial Vital Signs Initial Vital Signs: Vital Signs Temperature 98.3 F 11/11/23 14:47 Pulse Rate 108 H 11/11/23 14:47 Respiratory Rate 18 11/11/23 14:47 Blood Pressure 139/73 11/11/23 14:47 Pulse Oximetry 98 11/11/23 14:47 Oxygen Delivery Method Room Air 11/11/23 14:47 <Minerva Judd DO - Last Filed: 11/12/23 07:15> Initial Vital Signs Initial Vital Signs: Vital Signs Temperature 98.3 F 11/11/23 14:47 Pulse Rate 108 H 11/11/23 14:47 Respiratory Rate 18 11/11/23 14:47 Blood Pressure 139/73 11/11/23 14:47 Pulse Oximetry 98 11/11/23 14:47 Oxygen Delivery Method Room Air 11/11/23 14:47 Course <Gurjit Klein PA-C - Last Filed: 11/11/23 15:48> Vital Signs Vital signs: Vital Signs - 8 hr 11/11/23 14:47 Temperature 98.3 F Pulse Rate 108 H Respiratory Rate 18 Blood Pressure 139/73 Pulse Oximetry 98 Oxygen Delivery Method Room Air <Minerva Judd DO - Last Filed: 11/12/23 07:15> Vital Signs Vital signs: Vital Signs - 8 hr 11/11/23 14:47 Temperature 98.3 F Pulse Rate 108 H Respiratory Rate 18 Blood Pressure 139/73 Pulse Oximetry 98 Oxygen Delivery Method Room Air MDM - Recheck/Abnormal Lab/Rx <Gurjit Klein PA-C - Last Filed: 11/11/23 15:48> MDM Narrative Medical decision making narrative: ED course: This is a 52-year-old male presenting to the emergency department due to his ostomy bag becoming more loose and he was concerned that may follow up. Ostomy bag was replaced and secured by nursing without complications. There was very minimal ring of erythema surrounding the ostomy and suspect this is only irritant secondary to the stool event than true infection. Patient is scheduled to follow up with the his general surgeon in 3 days for routine care. CC: Ostomy bag troubleshooting Complicating co-morbidities: None Data collected from: Previous notes Medical records reviewed: Patient was last seen 4 years ago due to neutropenic fever. 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 Differential considered, but not limited to: Infection Exam documented above, pertinent findings include: Intestines appear well perfused and pink Lab Test results independently reviewed as above. Pertinent findings: None obtained Imaging studies independently reviewed: None Scores Used: None MIPS Elements: None Consultations: None Treatments: Ostomy bag replaced Re-evaluations: None Discussion: Discussed plan with the patient was comfortable with the plan Diagnosis: Ostomy bag malfunction Disposition: see below, along with detailed discharge instructions that have been reviewed with patient as well as indications for ED re-evaluation and additional outpatient follow up Discharge Plan Departure Patient Disposition: Home Clinical Impression: Complication of ostomy Activity Restrictions/Additional Instructions: Thank you for coming to the [facility] Emergency Department today. I am glad that we are able to help he replaced ostomy bag. Please follow up with your general surgeon as he had planned on Tuesday for continued care. I do not suspect there was any signs of infection and I think that the small amount of redness you are seeing is due to the skin being irritated from the stool. Please return to the emergency department if you develop any fevers, nausea, vomiting, or any other concerning signs or symptoms. I hope you feel better soon. Please follow up with your primary care provider within a week if your symptoms continue. If you do not have a primary care provider please contact the [facility] Resource line at [phone]. They will ask some questions about your medical history and help you get set up with a provider in the community. Prescriptions: No Action Neupogen 480 MCG/0.8 ML syringe 480 mcg IJ QWEEK Qty: 0 [facility] Comments: [facility] Vitamin B-12 50 mcg Tablet 500 mcg PO DAILY Qty: 0 prednisone 5 mg tablet 20 mg PO SUMOTUWEFR Patient Comments: Pt. takes 4 5mg tablets, every Tuesday, Tuesday, Tuesday, and Tuesday. pyridoxine (vitamin B6) [Vitamin B-6] 250 mg Tablet 250 mg PO DAILY lactulose 10 gram/15 mL Solution 15 ml PO DAILY PRN (Reason: Constipation) Qty: 300 1RF Rx Instructions: May take once daily prn for constipation. May take 2nd dose if needed Referrals: Mela Auguste MD [Primary Care Provider] - Stand Alone Forms: Patient Portal/API ED Sign-out <Minerva Judd DO - Last Filed: 11/12/23 07:15> Cosign ED Attending Rj Attestation: I was available for consultation.
--- NOTE | 2023-11-11 15:50 | PC.NURSE ---
patients colostomy that he arrived with was removed and discarded. this RN, with the help of 2nd RN Yuriy, cleaned around the stoma and re dressed with a new colostomy bag. NEEL Yan provided some additional teaching on how to change the colostomy bag. all questions answered and provider aware.
[2023-11-11 15:53] VITALS: BP 131/60; PULSE 87; RESP 18; O2SAT 98
== END 2023-11-11 15:56 | disposition home or self-care (01) ==
PROVIDERS: Emergency Provider Physician Assistant Medical; PCP Internal Medicine
DX: K94.00 Colostomy complication, unspecified (principal); D70.4 Cyclic neutropenia
CPT/HCPCS: 99281

== ENCOUNTER → 2023-11-16 09:22 | Outpatient (CLI) | payer OTHER, MEDICAID, SELFPAY ==
[2019-09-17 19:35] VITALS: BMI 25.8
== END ==
PROVIDERS: PCP Internal Medicine; Referring Provider Internal Medicine; Visit Provider Surgery
DX: K94.03 Colostomy malfunction (principal); Z93.3 Colostomy status
CPT/HCPCS: 99203; 99212

== ENCOUNTER → 2023-11-23 11:24 | Outpatient (CLI) | payer OTHER, MEDICAID, SELFPAY ==
[2019-09-17 19:35] VITALS: BMI 25.8
== END ==
LOC: WC 11:26
PROVIDERS: PCP Internal Medicine; Referring Provider Internal Medicine; Visit Provider Surgery
DX: Z93.3 Colostomy status (principal)
CPT/HCPCS: 99213

== ENCOUNTER → 2023-11-30 10:25 | Outpatient (CLI) | payer OTHER, MEDICAID, SELFPAY ==
[2019-09-17 19:35] VITALS: BMI 25.8
== END ==
LOC: WC 10:26
PROVIDERS: PCP Internal Medicine; Referring Provider Internal Medicine; Visit Provider Surgery
DX: Z93.3 Colostomy status (principal)
CPT/HCPCS: 99212

== ENCOUNTER → 2023-12-07 10:46 | Outpatient (CLI) | payer OTHER, MEDICAID, SELFPAY ==
[2019-09-17 19:35] VITALS: BMI 25.8
== END ==
LOC: WC 10:49
PROVIDERS: PCP Internal Medicine; Referring Provider Internal Medicine; Visit Provider Surgery
DX: Z93.3 Colostomy status (principal)
CPT/HCPCS: 99213

== ENCOUNTER → 2023-12-14 09:23 | Outpatient (CLI) | payer OTHER, MEDICAID, SELFPAY ==
[2019-09-17 19:35] VITALS: BMI 25.8
== END ==
LOC: WC 09:23
PROVIDERS: PCP Internal Medicine; Referring Provider Internal Medicine; Visit Provider Surgery
DX: K94.03 Colostomy malfunction (principal); D64.9 Anemia, unspecified; D61 Other aplastic anemias and other bone marrow failure syndromes; L24.B3 Irritant contact dermatitis related to fecal or urinary stoma or fistula
CPT/HCPCS: 99213

== ENCOUNTER → 2023-12-21 10:39 | Outpatient (CLI) | payer OTHER, MEDICAID, SELFPAY ==
[2019-09-17 19:35] VITALS: BMI 25.8
== END ==
LOC: WC 10:40
PROVIDERS: PCP Internal Medicine; Referring Provider Internal Medicine; Visit Provider Surgery
DX: Z43.3 Encounter for attention to colostomy (principal)
CPT/HCPCS: 99213

== ENCOUNTER → 2023-12-28 11:11 | Outpatient (CLI) | payer OTHER, MEDICAID, SELFPAY ==
[2019-09-17 19:35] VITALS: BMI 25.8
== END ==
LOC: WC 11:12
PROVIDERS: PCP Internal Medicine; Referring Provider Internal Medicine; Visit Provider Surgery
DX: Z43.3 Encounter for attention to colostomy (principal)
CPT/HCPCS: 99213

== ENCOUNTER → 2024-01-04 14:06 | Outpatient (CLI) | payer OTHER, MEDICAID, SELFPAY ==
[2019-09-17 19:35] VITALS: BMI 25.8
== END ==
LOC: WC 14:13
PROVIDERS: PCP Internal Medicine; Referring Provider Internal Medicine; Visit Provider Surgery
DX: Z43.3 Encounter for attention to colostomy (principal)
CPT/HCPCS: 99211

== ENCOUNTER → 2024-01-18 15:31 | Outpatient (CLI) | payer OTHER, MEDICAID, SELFPAY ==
[2019-09-17 19:35] VITALS: BMI 25.8
== END ==
PROVIDERS: PCP Internal Medicine; Referring Provider Internal Medicine; Visit Provider Surgery
DX: Z43.3 Encounter for attention to colostomy (principal)
CPT/HCPCS: 99211

== ENCOUNTER → 2024-02-22 10:57 | Outpatient (CLI) | payer OTHER, MEDICAID, SELFPAY ==
[2019-09-17 19:35] VITALS: BMI 25.8
== END ==
LOC: WC 10:57
PROVIDERS: PCP Internal Medicine; Referring Provider Internal Medicine; Visit Provider Surgery
DX: D61 Other aplastic anemias and other bone marrow failure syndromes (principal); K94.03 Colostomy malfunction; D64.9 Anemia, unspecified
CPT/HCPCS: 99213; 99214

== ENCOUNTER → 2024-03-28 09:04 | Outpatient (CLI) | payer OTHER, MEDICAID, SELFPAY ==
[2019-09-17 19:35] VITALS: BMI 25.8
== END ==
LOC: WC 09:04
PROVIDERS: PCP Internal Medicine; Referring Provider Internal Medicine; Visit Provider Nurse Practitioner Family
DX: K94.03 Colostomy malfunction (principal)
CPT/HCPCS: 99212; 99213

== ENCOUNTER → 2024-04-25 08:34 | Outpatient (CLI) | payer OTHER, MEDICAID, SELFPAY ==
[2019-09-17 19:35] VITALS: BMI 25.8
== END ==
PROVIDERS: PCP Internal Medicine; Referring Provider Internal Medicine; Visit Provider Surgery
DX: K59.09 Other constipation (principal); Z93.3 Colostomy status
CPT/HCPCS: 99213

== ENCOUNTER → 2024-05-30 09:53 | Outpatient (CLI) | payer OTHER, MEDICAID, SELFPAY ==
[2019-09-17 19:35] VITALS: BMI 25.8
== END ==
PROVIDERS: PCP Internal Medicine; Referring Provider Internal Medicine; Visit Provider Surgery
DX: L24.B1 Irritant contact dermatitis related to digestive stoma or fistula (principal); Z93.3 Colostomy status
CPT/HCPCS: 99212; 99213

== ENCOUNTER → 2024-06-27 09:14 | Outpatient (CLI) | payer OTHER, MEDICAID, SELFPAY ==
[2019-09-17 19:35] VITALS: BMI 25.8
== END ==
LOC: WC 09:14
PROVIDERS: PCP Internal Medicine; Referring Provider Internal Medicine; Visit Provider Surgery
DX: K94.03 Colostomy malfunction (principal)
CPT/HCPCS: 99213

== ENCOUNTER → 2024-07-24 09:04 | Outpatient (CLI) | payer OTHER, MEDICAID, SELFPAY ==
[2019-09-17 19:35] VITALS: BMI 25.8
== END ==
PROVIDERS: PCP Internal Medicine; Referring Provider Internal Medicine; Visit Provider Surgery
DX: K94.03 Colostomy malfunction (principal)
CPT/HCPCS: 99212; 99213

== ENCOUNTER → 2024-08-15 10:04 | Outpatient (CLI) | payer OTHER, MEDICAID, SELFPAY ==
[2019-09-17 19:35] VITALS: BMI 25.8
== END ==
PROVIDERS: PCP Internal Medicine; Referring Provider Internal Medicine; Visit Provider Surgery
DX: Z43.3 Encounter for attention to colostomy (principal); K59.00 Constipation, unspecified; R21 Rash and other nonspecific skin eruption; D61 Other aplastic anemias and other bone marrow failure syndromes; D64.9 Anemia, unspecified
CPT/HCPCS: 99213

== ENCOUNTER → 2024-09-12 10:24 | Outpatient (CLI) | payer OTHER, MEDICAID, SELFPAY ==
[2019-09-17 19:35] VITALS: BMI 25.8
== END ==
LOC: WC 10:27
PROVIDERS: PCP Internal Medicine; Referring Provider Internal Medicine; Visit Provider Surgery
DX: K94.03 Colostomy malfunction (principal)
CPT/HCPCS: 99211; 99213

== ENCOUNTER → 2024-10-24 15:01 | Outpatient (CLI) | payer OTHER, MEDICAID, SELFPAY ==
[2019-09-17 19:35] VITALS: BMI 25.8
== END ==
LOC: WC 15:03
PROVIDERS: PCP Internal Medicine; Referring Provider Internal Medicine; Visit Provider Surgery
DX: K94.03 Colostomy malfunction (principal); R21 Rash and other nonspecific skin eruption
CPT/HCPCS: 99212; 99213

== ENCOUNTER → 2024-11-21 09:55 | Outpatient (CLI) | payer OTHER, MEDICAID, SELFPAY ==
[2019-09-17 19:35] VITALS: BMI 25.8
--- NOTE | 2024-11-21 | OV.WND_ITS ---
PROGRESS NOTE DETAILS PATIENT NAME: ISMAEL SEBASTIAN. PATIENT NUMBER: [id number] CLINICIAN: DALY DE LA CRUZ RN PATIENT DATE OF : 1970 PHYSICIAN / DISASTER RECOVERY SPECIALIST: WOLF ELKINS PATIENT SUBJECTIVE CHIEF COMPLAINT THIS INFORMATION WAS OBTAINED FROM THE PATIENT. MY HEART IS MAKING ME FEEL HEAVY, DRAGGING ME DOWN, MAYBE IT'S THE BLOOD DISORDER. I FEEL CONSTIPATED. GENERAL NOTES HAS NOT DONE THE ENEMA'S. MURIXAL 2 TIMES A DAY. ALLERGIES NO KNOWN ALLERGIES HPI THIS INFORMATION WAS OBTAINED FROM THE PATIENT. THE FOLLOWING HPI ELEMENTS WERE DOCUMENTED FOR THE PATIENT'S WOUND: LOCATION: ABDOMEN CONTEXT: COLOSTOMY THE PATIENT IS A 53-YEAR-OLD MALE WITH ANEMIA AND SHWACHMAN-KIMBERLY SYNDROME WHO RETURNS TODAY FOR READMISSION TO THE WOUND CENTER FOR COLOSTOMY CARE. HE IS S/P TRANSVERSE LOOP COLOSTOMY 10/20/23 FOR TREATMENT OF COLONIC OBSTRUCTION SECONDARY TO FECAL IMPACTION. THE PATIENT REPORTS OCCASIONAL SKIN IRRITATION AND LEAKING BUT HE HAS NOT HAD ANY PAIN. HE IS TAKING 2 TABLESPOONS OF MIRALAX AND TWICE A DAY AND REPORTS THAT HIS CONSTIPATION HAS IMPROVED. THE PATIENT REPORTS SOME CHEST TIGHTNESS AND HE IS BEING EVALUATED BY HIS PRIMARY CARE PHYSICIAN. THE PATIENT REMAINS ON PREDNISONE. HE HAS BEEN SEEN BY A COLORECTAL SURGEON WHO TOLD HIM THAT THE COLOSTOMY IS NOT GOING TO BE REVERSED. ON EXAM TODAY THERE IS MILD AUNG STOMA SKIN IRRITATION. HOSPITAL RECORDS WERE REVIEWED AND THERE ARE NO RECENT LABS, CULTURES, OR IMAGING STUDIES AVAILABLE. FAMILY HISTORY THIS INFORMATION WAS OBTAINED FROM THE CHART, PATIENT. DIABETES- FATHER MENTAL ILLNESS- MOTHER, MATERNAL GRANDPARENTS SOCIAL HISTORY THIS INFORMATION WAS OBTAINED FROM THE CHART, PATIENT. NEVER SMOKER ALCOHOL USE: 2DRINKS/WEEK LIVES IN: PRIVATE HOME MARITAL STATUS: SINGLE OCCUPATION: CALIBRATION SPECIALIST ISMAEL SEBASTIAN [id number] 1970 MEDICAL HISTORY THIS INFORMATION WAS OBTAINED FROM THE CHART, PATIENT. PATIENT HAS A MEDICAL HISTORY OF: ANEMIA CHRONIC CONSTIPATION COLON POLYP OSTEOPOROSIS PILONIDAL CYST SHWACHMAN-KIMBERLY SYNDROME STERCORAL COLITIS SURGICAL HISTORY THIS INFORMATION WAS OBTAINED FROM THE CHART, PATIENT. PATIENT HAS A SURGICAL HISTORY OF: ME SIGMOIDOSCOPY FLX DX W/COLLJ SPEC BR/WA IF PFRMD- COLOSTOMY- 10/20/2023 IANDD FOR PILONIDAL CYST - REVIEW OF SYSTEMS (ROS) THIS INFORMATION WAS OBTAINED FROM THE PATIENT. COMPLAINTS AND SYMPTOMS PATIENT COM PLAINS OF: CARDIOVASCULAR (CENTRAL): DYSPNEA ON EXERTION CO-MORBID CONDITIONS: ANEMIA CONSTITUTIONAL SYMPTOMS (GENERAL HEALTH): LOSS OF APPETITE GASTROINTESTINAL (GI): STOMACH/ABDOMINAL PAIN PATIENT DENIES COM PLAINTS OR SY M PTOM S RELATED TO: CARDIOVASCULAR (CENTRAL): CHEST PAIN CONSTITUTIONAL SYMPTOMS (GENERAL HEALTH): CHILLS, FEVER, MARKED WEIGHT CHANGE PRIOR WOUND HISTORY RESPIRATORY: COUGH, SHORTNESS OF BREATH OBJECTIVE VITALS HEIGHT/LENGTH: 65 IN (165.1 CM), WEIGHT: 164.5 LBS (74.77 KGS), BMI: 27.4, TEMPERATURE: 97.8 ?F (36.56 ?C), PULSE: 108 BPM, RESPIRATORY RATE: 18 BREATHS/MIN, BLOOD PRESSURE: 138/93 MMHG, PULSE OXIMETRY: 98 %. PHYSICAL EXAM CONSTITUTIONAL: VITAL SIGNS REVIEWED AND NOTED. WELL DEVELOPED, WELL NOURISHED, AND IN NO ACUTE DISTRESS. ALERT AND ORIENTED X3. RESPIRATORY: EVEN RESPIRATIONS WITHOUT USE OF ACCESSORY MUSCLES. NO INTERCOASTAL RETRACTIONS NOTED. EVEN AND NON LABORED RESPIRATION. ISMAEL SEBASTIAN [id number] 1970 GASTROINTESTINAL (GI): SOFT, NONTENDER, NONDISTENDED. COLOSTOMY LEFT UPPER QUADRANT.. INTEGUMENTARY (HAIR, SKIN): NO ERYTHEMA. NO TENDERNESS. SKIN WARM AND DRY. NEUROLOGICAL: SENSATION: SYMMETRIC FUNCTION BY INFORMAL OBSERVATION. PSYCHIATRIC: ORIENTATION TO TIME, PLACE AND PERSON: NORMAL AFFECT WITH NORMAL THOUGHT PATTERN. ASSESSMENT ACTIVE PROBLEMS ICD-10 (ENCOUNTER DIAGNOSIS) K94.03 - COLOSTOMY MALFUNCTION (ENCOUNTER DIAGNOSIS) Z93.3 - COLOSTOMY STATUS (ENCOUNTER DIAGNOSIS) R21 - RASH AND OTHER NONSPECIFIC SKIN ERUPTION GENERAL NOTES CONTINUE COLOSTOMY CARE PER DALY DE LA CRUZ RN. THE PATIENT ADVISED TO CONTINUE MIRALAX TWICE A DAY. PLAN ADDITIONAL ORDERS: FOLLOW-UP APPOINTMENTS RETURN APPOINTMENT 4 WEEKS SCRIBING ATTESTATION I ATTEST, THE NURSE, THAT I SCRIBED THESE ORDERS FOR THE WOUND CARE PROVIDER. PROVIDER REVIEW AND ATTESTATION: REVIEWED HOSPITAL RECORDS. DISCUSSED THE PLAN OF CARE @ BEDSIDE WITH - THE PATIENT I AGREE AND ATTEST TO THE ABOVE INFORMATION PROVIDED FROM OTHER LICENSED PROFESSIONALS. GENERAL NOTES CONTINUE USING THE COLOPLAST ONE PIECE # [id number] AND CHANGE EVERY 3-4 DAYS. CONTINUE MIRALAX 2-3 X A DAY. PLAN OF CARE: 01. ENSURE/ESTABLISH OPTIMAL BLOOD FLOW : - REVIEWED, NOT APPLICABLE 02. ASSESS FOR/TREAT INFECTION : - REVIEWED, NOT APPLICABLE 03. DEBRIDE WEEKLY OR MORE OFTEN PRN : - REVIEWED, NOT APPLICABLE 04. OPTIMIZE GLUCOSE CONTROL AND NUTRITION : - REVIEWED, NOT APPLICABLE 05. OFFLOADING PLAN : - REVIEWED, NOT APPLICABLE 06. OPTIMIZE HOST FACTORS: - REVIEWED, NOT APPLICABLE 07. DRESSING SELECTION : - REVIEWED, NOT APPLICABLE 08. ADVANCED MODALITIES : - REVIEWED, NOT APPLICABLE 09. FALL PREVENTION : ISMAEL SEBASTIAN [id number] 1970 - REVIEWED, NOT APPLICABLE 10. PAIN MANAGEMENT : - REVIEWED, NOT APPLICABLE 11. MEASURABLE GOALS FOR WOUND HEALING AND/OR HYPERBARIC OXYGEN THERAPY : - REVIEWED, NOT APPLICABLE 12. DURATION/FREQUENCY OF WOUND CARE VISITS : - EVERY 30 DAYS STATUS: CONTINUED DATE: 10/24/2024 13. OSTOMY : - EDUCATE THE PATIENT ON ALL ASPECTS OF OSTOMY CARE. STATUS: CONTINUED DATE: 11/21/2024 - EDUCATE THE PATIENT REGARDING SUPPLY ORDERING. STATUS: CONTINUED DATE: 11/21/2024 - EDUCATE THE PATIENT ON NUTRITION/HYDRATION ISSUES. STATUS: CONTINUED DATE: 11/21/2024 - INSTRUCT THE PATIENT ON RESOURCES AVAILABLE. STATUS: CONTINUED DATE: 11/21/2024 ELECTRONIC SIGNATURE(S) SIGNED BY: DATE: WOLF ELKINS MD 11/21/2024 15:50:59 (PT) ENTERED BY: WOLF ELKINS MD ON 11/21/2024 12:46:53 (PT) ISMAEL SEBASTIAN [id number] 1970
== END ==
PROVIDERS: PCP Internal Medicine; Referring Provider Internal Medicine; Visit Provider Surgery
DX: K94.03 Colostomy malfunction (principal); R21 Rash and other nonspecific skin eruption
CPT/HCPCS: 99212; 99213

== ENCOUNTER → 2024-12-26 11:16 | Outpatient (CLI) | payer OTHER, MEDICAID, SELFPAY ==
[2019-09-17 19:35] VITALS: BMI 25.8
== END ==
LOC: WC 11:17
PROVIDERS: PCP Internal Medicine; Referring Provider Internal Medicine; Visit Provider Surgery
DX: K94.03 Colostomy malfunction (principal); R21 Rash and other nonspecific skin eruption
CPT/HCPCS: 99212; 99213

== ENCOUNTER → 2025-01-30 09:38 | Outpatient (CLI) | payer OTHER, MEDICAID, SELFPAY ==
[2019-09-17 19:35] VITALS: BMI 25.8
== END ==
LOC: WC 09:39
PROVIDERS: PCP Internal Medicine; Referring Provider Internal Medicine; Visit Provider Surgery
DX: K94.03 Colostomy malfunction (principal); R21 Rash and other nonspecific skin eruption
CPT/HCPCS: 99212; 99213

== ENCOUNTER → 2025-03-15 15:22 | Outpatient (CLI) | payer OTHER, MEDICAID, SELFPAY ==
[2019-09-17 19:35] VITALS: BMI 25.8
== END ==
LOC: WC 15:24
PROVIDERS: PCP Internal Medicine; Referring Provider Internal Medicine; Visit Provider Physician Assistant
DX: L89.313 Pressure ulcer of right buttock, stage 3 (principal); Z93.3 Colostomy status; R21 Rash and other nonspecific skin eruption
CPT/HCPCS: 11042; 99213

== ENCOUNTER → 2025-03-18 11:36 | Outpatient (CLI) | payer OTHER, MEDICAID, SELFPAY ==
[2019-09-17 19:35] VITALS: BMI 25.8
== END ==
LOC: WC 03-22 11:37
PROVIDERS: PCP Internal Medicine; Referring Provider Internal Medicine; Visit Provider Surgery
DX: L89.313 Pressure ulcer of right buttock, stage 3 (principal)
CPT/HCPCS: 99212

== ENCOUNTER → 2025-03-20 15:23 | Outpatient (CLI) | payer OTHER, MEDICAID, SELFPAY ==
[2019-09-17 19:35] VITALS: BMI 25.8
== END ==
LOC: WC 15:25
PROVIDERS: PCP Internal Medicine; Referring Provider Internal Medicine; Visit Provider Surgery
DX: L89.313 Pressure ulcer of right buttock, stage 3 (principal)
CPT/HCPCS: 99213

== ENCOUNTER → 2025-03-22 10:11 | Outpatient (CLI) | payer OTHER, MEDICAID, SELFPAY ==
[2019-09-17 19:35] VITALS: BMI 25.8
== END ==
LOC: WC 10:11
PROVIDERS: PCP Internal Medicine; Referring Provider Internal Medicine; Visit Provider Physician Assistant
DX: L89.313 Pressure ulcer of right buttock, stage 3 (principal); K94.03 Colostomy malfunction; Z93.3 Colostomy status; R21 Rash and other nonspecific skin eruption; D61 Other aplastic anemias and other bone marrow failure syndromes; D64.9 Anemia, unspecified
CPT/HCPCS: 11042; 99213

== ENCOUNTER → 2025-03-25 15:36 | Outpatient (CLI) | payer OTHER, MEDICAID, SELFPAY ==
[2019-09-17 19:35] VITALS: BMI 25.8
== END ==
LOC: WC 15:37
PROVIDERS: PCP Internal Medicine; Referring Provider Internal Medicine; Visit Provider Surgery
DX: L89.313 Pressure ulcer of right buttock, stage 3 (principal)
CPT/HCPCS: 99213

== ENCOUNTER → 2025-03-27 09:17 | Outpatient (CLI) | payer OTHER, MEDICAID, SELFPAY ==
[2019-09-17 19:35] VITALS: BMI 25.8
== END ==
LOC: WC 09:17
PROVIDERS: PCP Internal Medicine; Referring Provider Internal Medicine; Visit Provider Surgery
DX: L89.313 Pressure ulcer of right buttock, stage 3 (principal)
CPT/HCPCS: 99213

== ENCOUNTER → 2025-04-23 12:02 | Outpatient (CLI) | payer OTHER, MEDICAID, SELFPAY ==
[2019-09-17 19:35] VITALS: BMI 25.8
== END ==
LOC: WC 12:03
PROVIDERS: PCP Internal Medicine; Referring Provider Internal Medicine; Visit Provider Surgery
DX: L89.313 Pressure ulcer of right buttock, stage 3 (principal)
CPT/HCPCS: 99213

== ENCOUNTER → 2025-04-26 10:44 | Outpatient (CLI) | payer OTHER, MEDICAID, SELFPAY ==
[2019-09-17 19:35] VITALS: BMI 25.8
== END ==
PROVIDERS: PCP Internal Medicine; Referring Provider Internal Medicine; Visit Provider Surgery
DX: L89.313 Pressure ulcer of right buttock, stage 3 (principal); Z93.3 Colostomy status; D61 Other aplastic anemias and other bone marrow failure syndromes
CPT/HCPCS: 11042; 99213

== ENCOUNTER → 2025-04-30 09:06 | Outpatient (CLI) | payer OTHER, MEDICAID, SELFPAY ==
[2019-09-17 19:35] VITALS: BMI 25.8
== END ==
PROVIDERS: PCP Internal Medicine; Referring Provider Internal Medicine; Visit Provider Surgery
DX: L89.313 Pressure ulcer of right buttock, stage 3 (principal); Z93.3 Colostomy status; D61 Other aplastic anemias and other bone marrow failure syndromes; D64.9 Anemia, unspecified
CPT/HCPCS: 11042

== ENCOUNTER → 2025-05-03 09:19 | Outpatient (CLI) | payer OTHER, MEDICAID, SELFPAY ==
[2019-09-17 19:35] VITALS: BMI 25.8
== END ==
LOC: WC 09:19
PROVIDERS: PCP Internal Medicine; Referring Provider Internal Medicine; Visit Provider Physician Assistant
DX: Z48.00 Encounter for change or removal of nonsurgical wound dressing (principal); L89.313 Pressure ulcer of right buttock, stage 3
CPT/HCPCS: 99212

== ENCOUNTER → 2025-05-07 11:51 | Outpatient (CLI) | payer OTHER, MEDICAID, SELFPAY ==
[2019-09-17 19:35] VITALS: BMI 25.8
== END ==
LOC: WC 11:53
PROVIDERS: PCP Internal Medicine; Referring Provider Internal Medicine; Visit Provider Surgery
DX: L89.313 Pressure ulcer of right buttock, stage 3 (principal)
CPT/HCPCS: 99213

== ENCOUNTER → 2025-05-10 09:30 | Outpatient (CLI) | payer OTHER, MEDICAID, SELFPAY ==
[2019-09-17 19:35] VITALS: BMI 25.8
== END ==
LOC: WC 09:31
PROVIDERS: PCP Internal Medicine; Referring Provider Internal Medicine; Visit Provider Physician Assistant
DX: L89.313 Pressure ulcer of right buttock, stage 3 (principal); Z93.3 Colostomy status; D61 Other aplastic anemias and other bone marrow failure syndromes; D64.9 Anemia, unspecified; I10 Essential (primary) hypertension
CPT/HCPCS: 11042; 99213

== ENCOUNTER → 2025-05-14 10:18 | Outpatient (CLI) | payer OTHER, MEDICAID, SELFPAY ==
[2019-09-17 19:35] VITALS: BMI 25.8
== END ==
LOC: WC 10:18
PROVIDERS: PCP Internal Medicine; Referring Provider Internal Medicine; Visit Provider Surgery
DX: L89.313 Pressure ulcer of right buttock, stage 3 (principal)
CPT/HCPCS: 99212

== ENCOUNTER → 2025-05-17 09:36 | Outpatient (CLI) | payer OTHER, MEDICAID, SELFPAY ==
[2019-09-17 19:35] VITALS: BMI 25.8
== END ==
LOC: WC 09:37
PROVIDERS: PCP Internal Medicine; Referring Provider Internal Medicine; Visit Provider Physician Assistant
DX: L89.313 Pressure ulcer of right buttock, stage 3 (principal); K94.03 Colostomy malfunction; Z93.3 Colostomy status; D61 Other aplastic anemias and other bone marrow failure syndromes; D64.9 Anemia, unspecified
CPT/HCPCS: 11042; 99213

== ENCOUNTER → 2025-05-21 10:58 | Outpatient (CLI) | payer OTHER, MEDICAID, SELFPAY ==
[2019-09-17 19:35] VITALS: BMI 25.8
== END ==
LOC: WC 11:05
PROVIDERS: PCP Internal Medicine; Referring Provider Internal Medicine; Visit Provider Surgery
DX: L89.313 Pressure ulcer of right buttock, stage 3 (principal)
CPT/HCPCS: 99212

== ENCOUNTER → 2025-05-24 10:13 | Outpatient (CLI) | payer OTHER, MEDICAID, SELFPAY ==
[2019-09-17 19:35] VITALS: BMI 25.8
== END ==
LOC: WC 10:26
PROVIDERS: PCP Internal Medicine; Referring Provider Internal Medicine; Visit Provider Physician Assistant
DX: L89.313 Pressure ulcer of right buttock, stage 3 (principal); Z93.3 Colostomy status; R21 Rash and other nonspecific skin eruption
CPT/HCPCS: 97597; 99213

== ENCOUNTER → 2025-05-28 09:27 | Outpatient (CLI) | payer OTHER, MEDICAID, SELFPAY ==
[2019-09-17 19:35] VITALS: BMI 25.8
== END ==
LOC: WC 09:28
PROVIDERS: PCP Internal Medicine; Referring Provider Internal Medicine; Visit Provider Surgery
DX: L89.313 Pressure ulcer of right buttock, stage 3 (principal)
CPT/HCPCS: 99212

== ENCOUNTER → 2025-05-31 10:52 | Outpatient (CLI) | payer OTHER, MEDICAID, SELFPAY ==
[2019-09-17 19:35] VITALS: BMI 25.8
== END ==
LOC: WC 10:53
PROVIDERS: PCP Internal Medicine; Referring Provider Internal Medicine; Visit Provider Physician Assistant
DX: L89.313 Pressure ulcer of right buttock, stage 3 (principal); L89.92 Pressure ulcer of unspecified site, stage 2; Z93.3 Colostomy status; R21 Rash and other nonspecific skin eruption; L53.8 Other specified erythematous conditions; R60.0 Localized edema
CPT/HCPCS: 97597; 99213

== ENCOUNTER → 2025-06-07 11:40 | Outpatient (CLI) | payer OTHER, MEDICAID, SELFPAY ==
[2019-09-17 19:35] VITALS: BMI 25.8
== END ==
LOC: WC 11:41
PROVIDERS: PCP Internal Medicine; Referring Provider Internal Medicine; Visit Provider Physician Assistant
DX: L89.313 Pressure ulcer of right buttock, stage 3 (principal); L89.893 Pressure ulcer of other site, stage 3; Z93.3 Colostomy status; L53.8 Other specified erythematous conditions; R60.0 Localized edema
CPT/HCPCS: 11042; 99213

== ENCOUNTER → 2025-06-11 08:46 | Outpatient (CLI) | payer OTHER, MEDICAID, SELFPAY ==
[2019-09-17 19:35] VITALS: BMI 25.8
== END ==
LOC: WC 08:51
PROVIDERS: PCP Internal Medicine; Referring Provider Internal Medicine; Visit Provider Surgery
DX: L89.313 Pressure ulcer of right buttock, stage 3 (principal); L89.893 Pressure ulcer of other site, stage 3; L53.8 Other specified erythematous conditions; R60.0 Localized edema
CPT/HCPCS: 99213

== ENCOUNTER → 2025-06-14 10:41 | Outpatient (CLI) | payer OTHER, MEDICAID, SELFPAY ==
[2019-09-17 19:35] VITALS: BMI 25.8
== END ==
LOC: WC 10:42
PROVIDERS: PCP Internal Medicine; Referring Provider Internal Medicine; Visit Provider Physician Assistant
DX: L89.893 Pressure ulcer of other site, stage 3 (principal); R23.3 Spontaneous ecchymoses; R23.4 Changes in skin texture; L89.319 Pressure ulcer of right buttock, unspecified stage; Z93.3 Colostomy status; D61 Other aplastic anemias and other bone marrow failure syndromes; D64.9 Anemia, unspecified; R53.1 Weakness; Z59.89 Other problems related to housing and economic circumstances
CPT/HCPCS: 11042; 99213

== ENCOUNTER → 2025-06-18 14:52 | Outpatient (CLI) | payer OTHER, MEDICAID, SELFPAY ==
[2019-09-17 19:35] VITALS: BMI 25.8
== END ==
LOC: WC 14:52
PROVIDERS: PCP Internal Medicine; Referring Provider Internal Medicine; Visit Provider Surgery
DX: L89.893 Pressure ulcer of other site, stage 3 (principal); L53.8 Other specified erythematous conditions; R60.0 Localized edema
CPT/HCPCS: 99212

== ENCOUNTER → 2025-06-21 09:52 | Outpatient (CLI) | payer OTHER, MEDICAID, SELFPAY ==
[2019-09-17 19:35] VITALS: BMI 25.8
== END ==
LOC: WC 10:01
PROVIDERS: PCP Internal Medicine; Referring Provider Internal Medicine; Visit Provider Physician Assistant
DX: L89.893 Pressure ulcer of other site, stage 3 (principal); D64.9 Anemia, unspecified; D61 Other aplastic anemias and other bone marrow failure syndromes
CPT/HCPCS: 97597; 99213

== ENCOUNTER → 2025-06-25 15:23 | Outpatient (CLI) | payer OTHER, MEDICAID, SELFPAY ==
[2019-09-17 19:35] VITALS: BMI 25.8
== END ==
LOC: WC 15:24
PROVIDERS: PCP Internal Medicine; Referring Provider Internal Medicine; Visit Provider Surgery
DX: L89.893 Pressure ulcer of other site, stage 3 (principal)
CPT/HCPCS: 99213

== ENCOUNTER → 2025-07-02 12:08 | Outpatient (CLI) | payer OTHER, MEDICAID, SELFPAY ==
[2019-09-17 19:35] VITALS: BMI 25.8
== END ==
LOC: WC 12:09
PROVIDERS: PCP Internal Medicine; Referring Provider Internal Medicine; Visit Provider Surgery
DX: L89.893 Pressure ulcer of other site, stage 3 (principal)
CPT/HCPCS: 99212

== ENCOUNTER → 2025-07-09 11:42 | Outpatient (CLI) | payer OTHER, MEDICAID, SELFPAY ==
[2019-09-17 19:35] VITALS: BMI 25.8
== END ==
LOC: WC 11:42
PROVIDERS: PCP Internal Medicine; Referring Provider Internal Medicine; Visit Provider Surgery
DX: Z93.3 Colostomy status (principal); R21 Rash and other nonspecific skin eruption; L89.93 Pressure ulcer of unspecified site, stage 3
CPT/HCPCS: 99212; 99213

== ENCOUNTER → 2025-07-16 14:22 | Outpatient (CLI) | payer OTHER, MEDICAID, SELFPAY ==
[2019-09-17 19:35] VITALS: BMI 25.8
== END ==
LOC: WC 14:23
PROVIDERS: PCP Internal Medicine; Referring Provider Internal Medicine; Visit Provider Surgery
DX: Z93.3 Colostomy status (principal); L89.93 Pressure ulcer of unspecified site, stage 3; D61 Other aplastic anemias and other bone marrow failure syndromes
CPT/HCPCS: 99213

== ENCOUNTER → 2025-07-30 11:18 | Outpatient (CLI) | payer OTHER, MEDICAID, SELFPAY ==
[2019-09-17 19:35] VITALS: BMI 25.8
== END ==
LOC: WC 11:19
PROVIDERS: PCP Internal Medicine; Referring Provider Internal Medicine; Visit Provider Surgery
DX: L89.93 Pressure ulcer of unspecified site, stage 3 (principal); Z93.3 Colostomy status; R21 Rash and other nonspecific skin eruption
CPT/HCPCS: 99211; 99213